=== PATIENT | female | born 1950 | race Caucasian/White ===

== ENCOUNTER 2016-06-20 16:25 | Inpatient (IN) ==
[2016-06-20] MEDS ORDERED: IPRATROPIUM/ALBUTEROL 3 ML AMPUL.NEB NEB ONE ×3 (16:53→23:03)
[2016-06-20] MEDS ORDERED: 0.9 % SODIUM CHLORIDE 1,000 ML IV ONE (16:53)
--- NOTE | 2016-06-20 16:54 | Emergency Department Note ---
General Adult HPI - General Chief complaint: Shortness of Breath/Dyspnea Stated complaint: Shortness of breath Time Seen by Provider: 06/20/16 16:50 Mode of arrival: wheelchair - History of Present Illness HPI Narrative: This patient has been sick for 3 days with cough and wheezing and exacerbation of her COPD. She is positive for influenza. The emergency room. Onset (ago): day(s) - Related Data Home Medications Medication Instructions Recorded Confirmed Albuterol Sulfate [Ventolin] 2 puff INH Q4-6HP PRN 05/23/15 06/20/16 Hydrocodone/APAP 7.5/325Mg [[place] 1 - 2 tab PO Q4HP PRN 05/23/15 06/20/16 7.5/325Mg] Ipratropium/Albuterol [Duoneb] 3 ml NEB Q6HP PRN 05/23/15 06/20/16 LORazepam [Ativan] 1 mg PO Q6HP PRN 05/23/15 06/20/16 Omeprazole [PriLOSEC] 20 mg PO QDAY 05/23/15 06/20/16 Salmeterol Xinafoate [Serevent 50 mcg IH BID 05/23/15 06/20/16 Diskus] Tiotropium [place] [Spiriva] 18 mcg INH DAILY 05/23/15 06/20/16 predniSONE [Prednisone] 20 mg PO Q48 06/20/16 06/20/16 Allergies Allergy/AdvReac Type Severity Reaction Status Date / Time No Known Drug Allergies Allergy Verified 05/23/15 23:43 Review of Systems Constitutional: Denies: fever, chills Eyes: Denies: eye pain ENT ED: Denies: ear pain Cardiovascular: Denies: chest pain Respiratory: Reports: cough, dyspnea, wheezes Gastrointestinal: Denies: abdominal pain, nausea Genitourinary: Denies: urgency Musculoskeletal: Denies: back pain Integumentary: Denies: rash Neurological: Denies: headache Psychiatric: Denies: anxiety Past Medical History - Past Medical History Medical history: Reports: COPD Physical Exam - General General appearance: alert - Head Head exam: atraumatic - Eye Eye exam: Present: normal appearance - ENT ENT exam: normal exam - Neck Neck exam: Present: normal inspection - Chest Chest inspection: Present: normal inspection - Respiratory Respiratory exam: Present: wheezes - Cardiovascular Cardiovascular exam: Present: regular rate, bradycardia, normal heart sounds - Abdominal Exam Abdominal exam: Present: soft. Absent: distention, tenderness - Neurological Exam Neurological exam: Present: alert - Psychiatric Psychiatric exam: Present: normal affect - Skin Skin exam: Present: warm Course Course Narrative: Despite repeated DuoNeb treatments and Solu-Medrol we could not get this patient comfortable and left to go home. She is admitted to the hospital by Dr. Weiss Vital Signs Temperature 98.6 F 06/20/16 16:26 Pulse Rate 103 H 06/20/16 16:26 Respiratory Rate 24 06/20/16 16:26 Blood Pressure 119/67 06/20/16 16:26 Pulse Oximetry (%) 88 L 06/20/16 16:26 Temperature 98.8 F 06/21/16 07:32 Pulse Rate 70 06/21/16 07:45 Respiratory Rate 20 06/21/16 07:45 Blood Pressure 110/70 06/21/16 07:32 Pulse Oximetry (%) 94 06/21/16 07:46 Medical Decision Making - Medical Records Medical records reviewed: Yes I reviewed the patient's medical records. - Lab Data Lab results reviewed: Yes I reviewed the patient's lab results. Result diagrams: 06/21/16 04:55 06/20/16 17:15 Lab Results 06/20/16 06/20/16 06/20/16 Range/Units 17:15 17:15 17:15 WBC 7.2 (4.5-11.0) K/mcL RBC 4.51 (4.00-5.20) M/mcL Hgb 13.1 (12.0-15.0) g/dL Hct 39.8 (36.0-48.0) % MCV 88.3 (80.0-100.0) fL MCH 29.0 (26.0-34.0) pg MCHC 32.8 (31.0-36.0) g/dL RDW 13.9 (11.5-14.5) % Plt Count 182 (140-440) K/mcL MPV 11.2 H (7.4-10.4) fL Gran % 82.2 H (38.0-78.0) % Lymph % (Auto) 7.3 L (15.5-49.0) % [place] % (Auto) 9.2 H (1.0-9.0) % Eos % (Auto) 1.1 (0.0-7.0) % Baso % (Auto) 0.2 (0.0-2.0) % Gran # 5.9 (1.8-8.0) K/mcL Lymph # 0.5 L (1.5-4.8) K/mcL [place] # 0.7 (0.1-0.9) K/mcL Eos # 0.1 (0.0-0.7) K/mcL Baso # 0 (0.0-0.3) K/mcL VBG Lactic Acid 1.1 (0.5-2.2) mmol/L Sodium 139 (133-145) mmol/L Potassium 3.9 (3.3-5.1) mmol/L Chloride 102 (96-108) mmol/L Carbon Dioxide 26 (22-30) mmol/L Anion Gap 11.0 (8-16) BUN 16 (8-23) mg/dl Creatinine 1.0 (0.6-1.1) mg/dl GFR Calculation 59 Glucose 104 (70-105) mg/dL Calcium 8.7 (8.6-10.4) mg/dl Total Bilirubin 0.2 (0.0-1.0) mg/dL AST 17 (0-37) U/l ALT 15 (0-40) U/l Alkaline Phosphatase 59 (39-117) U/L Total Protein 6.4 (5.9-8.4) gm/dL Albumin 3.8 (3.2-5.2) gm/dL Globulin 2.6 (2.2-3.7) gm/dL Albumin/Globulin Ratio 1.5 (1.0-2.3) - Radiology Data Radiology results reviewed: Yes I reviewed the patient's radiology results. ( chest x-ray was unremarkable) Disposition Clinical Impression: Influenza, Acute exacerbation of chronic obstructive airways disease Disposition: Xfer As Outpt/Obs ([facility]) Condition: Undetermined
[2016-06-20 17:59] LABS: Basophils # (Auto) 0 K/mcL (0.0-0.3); Basophils % (Auto) 0.2 % (0.0-2.0); Eosinophils # (Auto) 0.1 K/mcL (0.0-0.7); Eosinophils % (Auto) 1.1 % (0.0-7.0); Granulocytes % (Auto) 82.2 % (38.0-78.0); Lymphocytes # (Auto) 0.5 K/mcL (1.5-4.8); Lymphocytes % (Auto) 7.3 % (15.5-49.0); Mean Cell Volume 88.3 fL (80.0-100.0); Mean Corpuscular HGB Conc 32.8 g/dL (31.0-36.0); Monocytes # (Auto) 0.7 K/mcL (0.1-0.9); Monocytes % (Auto) 9.2 % (1.0-9.0); Platelet Count 182 K/mcL (140-440); RBC 4.51 M/mcL (4.00-5.20); Red Cell Distribution Width 13.9 % (11.5-14.5)
[2016-06-20 18:14] LABS: ALT/SGPT 15 U/l (0-40); Albumin 3.8 gm/dL (3.2-5.2); Albumin/Globulin Ratio 1.5 (1.0-2.3); Alkaline Phosphatase 59 U/L (39-117); Blood Urea Nitrogen 16 mg/dl (8-23)
[2016-06-20] MEDS ORDERED: ALBUTEROL SULFATE 5 MG/ML NEB SOLUTION BOTTLE NEB ONE (19:40)
[2016-06-20] MEDS ORDERED: methylPREDNISolone SOD SUCC 125 MG/2 ML VIAL IV ONE (19:49)
--- NOTE | 2016-06-20 20:36 | XRay Report ---
HISTORY: Reason for Exam:cough and influenza FINDINGS : There is are bands of discoid atelectasis in the lingula and right middle lobe. No alveolar infiltrate is present. There is no pleural effusion or adenopathy. The heart size is normal. IMPRESSION: Bands of discoid atelectasis in both lungs which are new since 05/23/15. Interpreted and Authenticated by: Fernando Latham 06/20/16
[2016-06-20] MEDS ORDERED: OSELTAMIVIR PHOSPHATE 75 MG CAPSULE PO ONE (20:52)
--- NOTE | 2016-06-20 21:18 | Internal Med History&Physical ---
Medical - H&P: HPI Patient information: Note initiated : 06/20/16 at 9:10 pm Service Date, if different from initiated Date: [] Patient: Brii Leung a 66 y/o F admitted on for Shortness of breath. Chief Complaint: [] Chief complaint: shortness of breath. History of present illness: Ms. Leung is a 66 year old female who presents to the ER with shortness of breath, not improving over the last 2 days The patient has been feeling sick since tuesday, with headache, malaise, cough, shortnes of breath, wheezing, She notes that she has been using her home medications and has had to use the nebulizer every 2 hrs with no improvement She has h/o copd and uses oxygen at home, at baseline she can walk 1-2 blocks, but now even going to the bathroom makes her short of breath. her cough is productive with yellowish sputum, no hemoptysis She denies any chest pains, palpitations, admits to some headaches, no abdominal pain, has some nausea, no vomiting, no bowel, blaldder issues In the ER she was wheezing, X ray chest is clear, labs ok, Flu was positive for influenza type A, the patient labs unremarkable SHe is on baseline oxygen requirement, but wheezing badly not responding to steroids, duonebs, in the ER ABG done shows ph 7.41/40/78 on 2L oxygen She was there for admitted to the hospital fo further management. patient notes that the likely source of her flu is the grand daugther. - Constitutional Constitutional: Present: fatigue, fever(s), headache(s), malaise, weakness - EENT Eyes: Absent: change in vision Nose, mouth and throat: Present: sinus pressure. Absent: disequilibrium, dizziness, odynophagia, throat swelling, tongue swelling - Cardiovascular Cardiovascular: Absent: chest pain, chest pain at rest, paroxysmal nocturnal dyspnea, pedal edema, radiating pain, syncope - Respiratory Respiratory: Present: cough, dyspnea, dyspnea on exertion, wheezing, excessive phlegm production, change in phlegm color, pain with cough. Absent: hemoptysis - Gastrointestinal Gastrointestinal: Present: nausea. Absent: abdominal pain, vomiting - Genitourinary Genitourinary: Absent: difficulty urinating, difficulty voiding, dyspareunia, dysuria - Musculoskeletal Musculoskeletal: Present: back pain. Absent: arthralgias, joint swelling - Integumentary Integumentary: Absent: new lesions, swelling, wounds, jaundice - Neurological Neurological: Absent: disequilibrium, dizziness, focal weakness, syncope, vertigo - Psychiatric Psychiatric: Present: anxiety, depression - Endocrine Endocrine: Absent: polydipsia, polyphagia, polyuria - Hematologic/Lymphatic Hematologic/Lymphatic: Absent: easy bleeding, easy bruising - Allergic/Immunologic Allergic/Immunologic: Absent: uticaria, wheezing Medical - H&P: PMH Medical history: PMH of copd, back pain, osteroarthrtitis, anxiety, depression. Surgical history: Tonsillectomy, tubal ligation. Family history: reviewed and not pertinent Social history: still smokes no etoh no recreational drugs. Medical - H&P: Meds Home Medications Medication Instructions Recorded Confirmed Type Albuterol Sulfate [Ventolin] 2 puff INH Q4-6HP PRN 05/23/15 05/23/15 History Hydrocodone/APAP 7.5/325Mg [[place] 1 - 2 tab PO Q4HP PRN 05/23/15 05/23/15 History 7.5/325Mg] Ipratropium/Albuterol [Duoneb] 3 ml NEB Q6HP PRN 05/23/15 05/23/15 History LORazepam [Ativan] 1 mg PO Q6HP PRN 05/23/15 05/23/15 History Omeprazole [PriLOSEC] 20 mg PO QDAY 05/23/15 05/23/15 History Salmeterol Xinafoate [Serevent 50 mcg IH BID 05/23/15 05/23/15 History Diskus] Tiotropium [place] [Spiriva] 18 mcg INH DAILY 05/23/15 05/23/15 History Allergies Allergy/AdvReac Type Severity Reaction Status Date / Time No Known Drug Allergies Allergy Verified 05/23/15 23:43 Medical - H&P: Exam - Constitutional Vitals: Temp Pulse Resp BP Pulse Ox 98.6 F 95 H 22 140/75 93 06/20/16 16:26 06/20/16 20:30 06/20/16 20:30 06/20/16 20:30 06/20/16 20:30 General appearance: cooperative, no acute distress - Head Head exam: Present: atraumatic, normal inspection, normocephalic - Eye Eye exam: Present: PERRL. Absent: periorbital swelling, periorbital tenderness , scleral icterus - ENT ENT exam: Present: mucous membranes moist, normal external ear exam, normal oropharynx, TM's normal bilaterally - Neck Neck exam: Present: normal inspection. Absent: tenderness - Expanded Neck Exam Neck exam: Absent: anterior neck swelling, tracheal deviation - Respiratory Respiratory exam: Present: decreased breath sounds, rhonchi, wheezes. Absent: accessory muscle use, chest wall tenderness, rales, respiratory distress - Cardiovascular Cardiovascular exam: Present: normal rate and rhythm, +S1, +S2, tachycardia - GI/Abdominal GI/Abdominal exam: Present: normal bowel sounds, soft. Absent: guarding, rigid - Extremities Exam Extremities exam: Present: Foot pink and warm, neurovascular intact. Absent: pedal edema - Back Exam Back exam: Absent: paraspinal tenderness, rash noted, tenderness, vertebral tenderness - Neurological Exam Neurological exam: Present: alert, CN II-XII intact, oriented X3. Absent: motor sensory deficit - Psychiatric Psychiatric exam: Absent: agitated, anxious - Skin Skin exam: Absent: rash, urticaria, warm Medical - H&P: Reslt - Labs CBC & Chem 7: 06/20/16 17:15 06/20/16 17:15 Labs: Short CBC 06/20/16 Range/Units 17:15 WBC 7.2 (4.5-11.0) K/mcL Hgb 13.1 (12.0-15.0) g/dL Hct 39.8 (36.0-48.0) % Plt Count 182 (140-440) K/mcL BMP 06/20/16 17:15 Sodium 139 Potassium 3.9 Chloride 102 Carbon Dioxide 26 BUN 16 Creatinine 1.0 Glucose 104 Calcium 8.7 Liver Function 06/20/16 Range/Units 17:15 Total Bilirubin 0.2 (0.0-1.0) mg/dL AST 17 (0-37) U/l ALT 15 (0-40) U/l Alkaline Phosphatase 59 (39-117) U/L Albumin 3.8 (3.2-5.2) gm/dL - ABG Interpretation -: ABG interpreted by me Interpretation: normal (chr hypoxia, ) Medical - H&P: A/P (1) Influenza A Current visit: Yes Status: Acute (2) Acute exacerbation of chronic obstructive airways disease Current visit: No Status: Acute (3) Chronic respiratory failure with hypoxia Current visit: Yes Status: Acute - Narrative A/P Narrative: patient presents to the ER with sob, wheezing, and flu, admitted for copd exacerbatino. Place under observation, she has no increased oxygen requirement, Treat flu with tamiflu bid STart on IV steroids, Zithromax, duonebs q 4 hrs, incentive spirometery. Patient is able to speak full sentences, has no accessory muscle use and normal abg, at thsi time no indication for bipap treatment X ray appears clear, official report pending, Patient has chr OA issues and Anxiety She seems to take 1mg of ativan every 6 hrs, I have cut down her dose of ativn to 0.5mg to avoid resp depression. will increase the dose if needed. Diet regular code full Dvt lovenox sq. Plan of care discused with the patient who is in agreement with same.
[2016-06-20] MEDS ORDERED: AZITHROMYCIN 250 MG TABLET PO ONE (22:10)
[2016-06-20] MEDS ORDERED: BISACODYL 10 MG SUPP.RECT PR PRN (22:10)
[2016-06-20] MEDS ORDERED: NALOXONE HCL 0.4 MG/ML VIAL IV PRN (22:10)
[2016-06-20] MEDS ORDERED: ACETAMINOPHEN 325 MG TABLET PO PRN (22:10)
[2016-06-20] MEDS ORDERED: ONDANSETRON 4 MG/2 ML VIAL IV PRN (22:10)
[2016-06-20] MEDS ORDERED: MAGNESIUM HYDROXIDE 30 ML ORAL.SUSP PO PRN (22:10)
[2016-06-20] MEDS ORDERED: FLEETS ADULT ENEMA PR PRN (22:10)
[2016-06-20] MEDS ORDERED: SENNOSIDES 1 TABLET PO PRN (22:10)
[2016-06-20] MEDS: OSELTAMIVIR PHOSPHATE 75 MG CAPSULE PO SCH (22:46)
[2016-06-20] MEDS: HYDROCODONE/APAP 7.5/325MG TABLET PO PRN (22:58)
[2016-06-20] MEDS: 0.9 % SODIUM CHLORIDE 10 ML SYRINGE IV SCH (23:00)
[2016-06-20] MEDS: IPRATROPIUM/ALBUTEROL 3 ML AMPUL.NEB NEB SCH (23:00)
[2016-06-20] MEDS ORDERED: HYDROCODONE/APAP 7.5/325MG TABLET PO ONE (23:02)
[2016-06-20] MEDS: ENOXAPARIN 40 MG/0.4 ML SYRINGE SQ SCH (23:14)
[2016-06-21] MEDS ORDERED: methylPREDNISolone SOD SUCC 125 MG/2 ML VIAL ONE (00:43)
[2016-06-21] MEDS: methylPREDNISolone SOD SUCC 40 MG/ML VIAL IV SCH ×5 (00:43→23:35)
[2016-06-21] MEDS: IPRATROPIUM/ALBUTEROL 3 ML AMPUL.NEB NEB SCH ×6 (03:05→22:33)
[2016-06-21] MEDS ORDERED: IPRATROPIUM/ALBUTEROL 3 ML AMPUL.NEB NEB ONE (03:12)
[2016-06-21] MEDS: LORazepam 0.5 MG TABLET PO PRN ×3 (03:28→17:36)
[2016-06-21] MEDS ORDERED: HYDROCODONE/APAP 7.5/325MG TABLET PO ONE (03:32)
[2016-06-21] MEDS ORDERED: LORazepam 0.5 MG TABLET ONE (03:33)
[2016-06-21] MEDS: PANTOPRAZOLE 40 MG TABLET PO SCH (07:34)
[2016-06-21] MEDS: 0.9 % SODIUM CHLORIDE 10 ML SYRINGE IV SCH ×3 (07:35→23:36)
[2016-06-21 08:07] LABS: Mean Cell Volume 88.8 fL (80.0-100.0); Mean Corpuscular HGB Conc 32.9 g/dL (31.0-36.0); Mean Corpuscular Hemoglobin 29.2 pg (26.0-34.0); Platelet Count 169 K/mcL (140-440); RBC 4.18 M/mcL (4.00-5.20); Red Cell Distribution Width 13.8 % (11.5-14.5)
[2016-06-21 08:22] LABS: ALT/SGPT 14 U/l (0-40); Albumin 3.8 gm/dL (3.2-5.2); Alkaline Phosphatase 55 U/L (39-117); Bilirubin,Direct < 0.2 mg/dL (0.0-0.3); Blood Urea Nitrogen 13 mg/dl (8-23); Gamma Glutamyl Transpeptidase 55 U/L (5-36); Magnesium 2.1 mg/dL (1.6-2.5); Phosphorous 4.5 mg/dL (2.7-4.5); Uric Acid 3.4 mg/dL (2.5-8.0)
[2016-06-21 09:06] LABS: Band Neutrophils % 5 % (0-10); Lymphocytes % 3 % (15-49); Monocytes % (Manual) 2 % (1-9); Platelet Estimate NORMAL (NORMAL); RBC Morphology NORMAL (NORMAL); Segmented Neutrophils % 90 % (38-78)
[2016-06-21] MEDS: ENOXAPARIN 40 MG/0.4 ML SYRINGE SQ SCH (09:07)
[2016-06-21] MEDS: OSELTAMIVIR PHOSPHATE 75 MG CAPSULE PO SCH ×2 (09:08→21:16)
[2016-06-21] MEDS: guaiFENesin 600 MG TAB.SR.12H PO SCH ×2 (09:08→21:16)
[2016-06-21] MEDS: AZITHROMYCIN 250 MG TABLET PO SCH (13:22)
[2016-06-21] MEDS: HYDROCODONE/APAP 7.5/325MG TABLET PO PRN ×2 (13:22→17:37)
--- NOTE | 2016-06-21 14:07 | Internal Med Progress Note ---
Medical - PN: Subj Patient information: Note initiated : 06/21/16 at 2:04 pm Service Date, if different from initiated Date: [] Patient: Brii Leung 66 y/o F admitted on 06/20/16 for SOB/Influenza, COPD Exacerbation. Chief Complaint: [] Interval history: Pt seen examined no acute concerns no acute overnight events no new complaints. slept ok but sill wheezing, and sob on minimal activity Coughing intermittently. Pertinent ROS: sob present, cough present, weakness and malaise present no chest pains, palpiations no abdominal pain, nausea or vomiting. - Constitutional Vitals: Vital Signs Temp Pulse Resp BP Pulse Ox 98.2 F 89 22 132/78 98 06/21/16 12:00 06/21/16 12:00 06/21/16 12:00 06/21/16 12:00 06/21/16 12:00 Period Temp Pulse Resp BP Sys/Queen Pulse Ox Last 24 Hr 97.3 F-98.8 F 70-92 16-26 110-148/70-78 92-98 Intake and Output 06/21/16 06/21/16 06/21/16 05:59 13:59 21:59 Intake Total 240 / 240 Balance 240 / 240 Weight 188 lb Intake & Output: Intake & Output 06/21/16 06/21/16 06/21/16 05:59 13:59 21:59 Intake Total 240 / 240 Balance 240 / 240 Weight 188 lb Intake: Oral 240 / 240 Other: Meal Nourishment/Supplement Percent of Meal Consumed 100% Feeding Ability Independent # Voids 2 - Head Head exam: Present: atraumatic, normal inspection, normocephalic - Eye Eye exam: Present: PERRL. Absent: periorbital swelling, periorbital tenderness , scleral icterus - ENT ENT exam: Present: mucous membranes moist - Respiratory Respiratory exam: Present: prolonged expiratory phase, wheezes. Absent: accessory muscle use, chest wall tenderness - Cardiovascular Cardiovascular exam: Present: normal rate and rhythm, +S1, +S2 - GI/Abdominal GI/Abdominal exam: Present: normal bowel sounds, soft - Neurological Exam Neurological exam: Present: alert, CN II-XII intact, oriented X3. Absent: motor sensory deficit Medical - PN: Obj Da - Labs CBC & Chem 7: 06/21/16 04:55 06/21/16 04:55 Labs: Abnormal Lab Results 06/21/16 06/21/16 04:55 04:55 WBC 4.4 L MPV 11.3 H Seg Neutrophils % 90 H Lymphocytes % 3 L Glucose 150 H Calcium 8.3 L GGT 55 H Total Protein 5.7 L Globulin 1.9 L Meds: Medications Acetaminophen (Tylenol) 650 mg PO Q6HP PRN PRN Reason: PAIN/FEVER > 101 Acetaminophen/Hydrocodone Bitart ([place] 7.5/325mg) 1 tab PO Q4-6HP PRN PRN Reason: Pain Last Admin: 06/21/16 13:22 Dose: 1 tab Albuterol/Ipratropium (Duoneb) 3 ml NEB Q4HRT [facility] Last Admin: 06/21/16 11:15 Dose: 3 ml Azithromycin (Zithromax) 250 mg PO DAILY [facility] Stop: 06/24/16 09:01 Last Admin: 06/21/16 13:22 Dose: 250 mg Bisacodyl (Dulcolax) 10 mg SC Q2-3DAYS PRN PRN Reason: Constipation Enoxaparin Sodium (Lovenox) 40 mg SQ DAILY [facility] Last Admin: 06/21/16 09:07 Dose: 40 mg Guaifenesin (Mucinex) 600 mg PO BID [facility] Last Admin: 06/21/16 09:08 Dose: 600 mg Lorazepam (Ativan) 0.5 mg PO Q4HP PRN PRN Reason: ANXIETY/SEDATION Last Admin: 06/21/16 13:22 Dose: 0.5 mg Magnesium Hydroxide (Milk Of Magnesia) 30 ml PO DAILYP PRN PRN Reason: Constipation Methylprednisolone Sodium Succinate (Solu-Medrol) 40 mg IV Q6 [facility] Last Admin: 06/21/16 11:56 Dose: 40 mg Naloxone HCl (Narcan) 0.1 mg IV Q2MIN PRN PRN Reason: Opiate Reversal Ondansetron HCl (Zofran) 4 mg IV Q6HP PRN PRN Reason: Nausea And Vomiting Oseltamivir Phosphate (Tamiflu) 75 mg PO BID [facility] Last Admin: 06/21/16 09:08 Dose: 75 mg Pantoprazole Sodium (Protonix) 40 mg PO QAMAC [facility] Last Admin: 06/21/16 07:34 Dose: 40 mg Promethazine HCl (Phenergan) 12.5 mg IV Q6HP PRN PRN Reason: Nausea And Vomiting Senna (Senokot) 2 tab PO HS PRN PRN Reason: Constipation Sodium Biphosphate/Sodium Phosphate (Fleets Adult) 1 dose SC Q3-4DAYS PRN PRN Reason: Constipation Sodium Chloride (Saline Flush) 10 ml IV Q8 [facility] Last Admin: 06/21/16 13:23 Dose: 10 ml Medical - PN: A/P - Time Spent With Patient Total time spent is greater than 50% in coordination of care (as documented) at patient's floor/unit and/or counseling patient: (1) Influenza A Status: Acute Assessment and plan: on tamiflu. Current Visit: Yes (2) Acute exacerbation of chronic obstructive airways disease Status: Acute Assessment and plan: at baseline oxygen requirement wheezing bilaterally poor air entry continue steroids duonebs and antibiotics. Current Visit: Yes (3) Chronic respiratory failure with hypoxia Status: Acute Assessment and plan: at baseline oxygen requirements. Current Visit: Yes Medical - PN: Qual - Stroke Symptom Onset Unknown: No - VTE Deep Vein Thrombosis/Pulmonary Embolism Present on Admission: No
[2016-06-21] MEDS: PROMETHAZINE 25 MG/ML VIAL IV PRN (14:55)
[2016-06-22] MEDS: IPRATROPIUM/ALBUTEROL 3 ML AMPUL.NEB NEB SCH ×6 (03:51→22:34)
[2016-06-22] MEDS: PANTOPRAZOLE 40 MG TABLET PO SCH (07:13)
[2016-06-22] MEDS: methylPREDNISolone SOD SUCC 40 MG/ML VIAL IV SCH ×5 (07:13→23:51)
[2016-06-22] MEDS: 0.9 % SODIUM CHLORIDE 10 ML SYRINGE IV SCH ×3 (07:14→21:27)
[2016-06-22] MEDS: ENOXAPARIN 40 MG/0.4 ML SYRINGE SQ SCH (10:42)
[2016-06-22] MEDS: OSELTAMIVIR PHOSPHATE 75 MG CAPSULE PO SCH ×2 (10:42→21:15)
[2016-06-22] MEDS: AZITHROMYCIN 250 MG TABLET PO SCH (10:43)
[2016-06-22] MEDS: guaiFENesin 600 MG TAB.SR.12H PO SCH ×2 (10:44→21:15)
[2016-06-22] MEDS: PROMETHAZINE 25 MG/ML VIAL IV PRN ×2 (11:10→21:27)
--- NOTE | 2016-06-22 13:48 | Internal Med Progress Note ---
Medical - PN: Subj Patient information: Note initiated : 06/22/16 at 1:46 pm Service Date, if different from initiated Date: [] Patient: Brii Leung 66 y/o F admitted on 06/20/16 for SOB/Influenza, COPD Exacerbation. Chief Complaint: [] Interval history: The patient seen exained this AM no acute complaints still is very sob on minimal activity, going to the bathroom, which is 10 feet away makes her tired and sob, still coughing and wheezing. Does not feel safe to go home. Pertinent ROS: Denies headache, dizziness Denies chest pain, palpitations cough or shortness of breath present. Denies abdominal pain, nausea or vomiting. - Constitutional Vitals: Vital Signs Temp Pulse Resp BP Pulse Ox 97.6 F 77 18 132/67 99 06/22/16 11:45 06/22/16 11:45 06/22/16 11:45 06/22/16 11:45 06/22/16 11:45 Period Temp Pulse Resp BP Sys/Queen Pulse Ox Last 24 Hr 97.6 F-98.4 F 71-88 16-24 100-135/62-82 93-99 Intake and Output 06/21/16 06/22/16 06/22/16 21:59 05:59 13:59 Intake Total 225 / 225 150 / 150 Output Total 450 / 450 Balance -225 / -225 150 / 150 Weight 188 lb 8 oz Intake & Output: Intake & Output 06/21/16 06/22/16 06/22/16 21:59 05:59 13:59 Intake Total 225 / 225 150 / 150 Output Total 450 / 450 Balance -225 / -225 150 / 150 Weight 188 lb 8 oz Intake: Oral 225 / 225 150 / 150 Output: Void Amount 450 / 450 - Head Head exam: Present: atraumatic, normal inspection - Eye Eye exam: Present: PERRL. Absent: periorbital swelling, periorbital tenderness , scleral icterus - ENT ENT exam: Present: mucous membranes moist - Neck Neck exam: Present: normal inspection - Respiratory Respiratory exam: Present: decreased breath sounds, prolonged expiratory phase, rhonchi, wheezes. Absent: accessory muscle use - Cardiovascular Cardiovascular exam: Present: normal rate and rhythm, +S1, +S2 - GI/Abdominal GI/Abdominal exam: Present: normal bowel sounds, soft. Absent: rigid, tenderness - Neurological Exam Neurological exam: Present: alert, CN II-XII intact, oriented X3. Absent: motor sensory deficit Medical - PN: Obj Da - Labs CBC & Chem 7: 06/21/16 04:55 06/21/16 04:55 Labs: Abnormal Lab Results 06/21/16 06/21/16 04:55 04:55 WBC 4.4 L MPV 11.3 H Seg Neutrophils % 90 H Lymphocytes % 3 L Glucose 150 H Calcium 8.3 L GGT 55 H Total Protein 5.7 L Globulin 1.9 L Meds: Medications Acetaminophen (Tylenol) 650 mg PO Q6HP PRN PRN Reason: PAIN/FEVER > 101 Acetaminophen/Hydrocodone Bitart ([place] 7.5/325mg) 1 tab PO Q4-6HP PRN PRN Reason: Pain Last Admin: 06/21/16 17:37 Dose: 1 tab Albuterol/Ipratropium (Duoneb) 3 ml NEB Q4HRT [facility] Last Admin: 06/22/16 11:23 Dose: 3 ml Azithromycin (Zithromax) 250 mg PO DAILY [facility] Stop: 06/24/16 09:01 Last Admin: 06/22/16 10:43 Dose: 250 mg Bisacodyl (Dulcolax) 10 mg [place] Q2-3DAYS PRN PRN Reason: Constipation Enoxaparin Sodium (Lovenox) 40 mg SQ DAILY [facility] Last Admin: 06/22/16 10:42 Dose: 40 mg Guaifenesin (Mucinex) 600 mg PO BID [facility] Last Admin: 06/22/16 10:44 Dose: 600 mg Lorazepam (Ativan) 0.5 mg PO Q4HP PRN PRN Reason: ANXIETY/SEDATION Last Admin: 06/21/16 17:36 Dose: 0.5 mg Magnesium Hydroxide (Milk Of Magnesia) 30 ml PO DAILYP PRN PRN Reason: Constipation Methylprednisolone Sodium Succinate (Solu-Medrol) 40 mg IV Q6 [facility] Last Admin: 06/22/16 11:21 Dose: 40 mg Naloxone HCl (Narcan) 0.1 mg IV Q2MIN PRN PRN Reason: Opiate Reversal Ondansetron HCl (Zofran) 4 mg IV Q6HP PRN PRN Reason: Nausea And Vomiting Oseltamivir Phosphate (Tamiflu) 75 mg PO BID [facility] Last Admin: 06/22/16 10:42 Dose: 75 mg Pantoprazole Sodium (Protonix) 40 mg PO QAMAC [facility] Last Admin: 06/22/16 07:13 Dose: 40 mg Promethazine HCl (Phenergan) 12.5 mg IV Q6HP PRN PRN Reason: Nausea And Vomiting Last Admin: 06/22/16 11:10 Dose: 12.5 mg Senna (Senokot) 2 tab PO HS PRN PRN Reason: Constipation Sodium Biphosphate/Sodium Phosphate (Fleets Adult) 1 dose [place] Q3-4DAYS PRN PRN Reason: Constipation Sodium Chloride (Saline Flush) 10 ml IV Q8 [facility] Last Admin: 06/22/16 07:14 Dose: 10 ml Medical - PN: A/P - Time Spent With Patient Total time spent is greater than 50% in coordination of care (as documented) at patient's floor/unit and/or counseling patient: (1) Influenza A Status: Acute Assessment and plan: on tamiflu. Current Visit: Yes (2) Acute exacerbation of chronic obstructive airways disease Status: Acute Assessment and plan: at baseline oxygen requirement wheezing bilaterally poor air entry continue steroids duonebs and antibiotics. patient is sob on minimal activity, not safe to go home, will continue IV steroids, duonebs q 4 hrs and abx, monitor Current Visit: Yes (3) Chronic respiratory failure with hypoxia Status: Acute Assessment and plan: at baseline oxygen requirements. Current Visit: Yes Medical - PN: Qual - Stroke Symptom Onset Unknown: No - VTE Deep Vein Thrombosis/Pulmonary Embolism Present on Admission: No
[2016-06-22] MEDS: LORazepam 0.5 MG TABLET PO PRN (17:58)
[2016-06-22] MEDS: HYDROCODONE/APAP 7.5/325MG TABLET PO PRN (17:58)
[2016-06-22] MEDS ORDERED: POTASSIUM CHLORIDE 20 MEQ PACKET PO ONE (18:19)
[2016-06-23] MEDS: IPRATROPIUM/ALBUTEROL 3 ML AMPUL.NEB NEB SCH ×6 (03:47→23:04)
[2016-06-23] MEDS: methylPREDNISolone SOD SUCC 40 MG/ML VIAL IV SCH ×3 (05:56→18:00)
[2016-06-23] MEDS: 0.9 % SODIUM CHLORIDE 10 ML SYRINGE IV SCH ×3 (05:56→22:39)
[2016-06-23 06:26] LABS: Basophils # (Auto) 0 K/mcL (0.0-0.3); Basophils % (Auto) 0.1 % (0.0-2.0); Eosinophils # (Auto) 0 K/mcL (0.0-0.7); Eosinophils % (Auto) 0.2 % (0.0-7.0); Granulocytes % (Auto) 86.2 % (38.0-78.0); Lymphocytes # (Auto) 0.5 K/mcL (1.5-4.8); Lymphocytes % (Auto) 7.3 % (15.5-49.0); Mean Cell Volume 89.9 fL (80.0-100.0); Mean Corpuscular HGB Conc 32.3 g/dL (31.0-36.0); Monocytes # (Auto) 0.5 K/mcL (0.1-0.9); Monocytes % (Auto) 6.2 % (1.0-9.0); Platelet Count 176 K/mcL (140-440); RBC 4.13 M/mcL (4.00-5.20); Red Cell Distribution Width 13.9 % (11.5-14.5)
[2016-06-23 07:00] LABS: ALT/SGPT 13 U/l (0-40); Albumin 3.5 gm/dL (3.2-5.2); Albumin/Globulin Ratio 1.5 (1.0-2.3); Alkaline Phosphatase 46 U/L (39-117); Bilirubin,Direct < 0.2 mg/dL (0.0-0.3); Blood Urea Nitrogen 24 mg/dl (8-23); Gamma Glutamyl Transpeptidase 59 U/L (5-36); Magnesium 2.3 mg/dL (1.6-2.5); Phosphorous 3.7 mg/dL (2.7-4.5); Uric Acid 2.7 mg/dL (2.5-8.0)
[2016-06-23] MEDS: PANTOPRAZOLE 40 MG TABLET PO SCH (07:09)
[2016-06-23] MEDS: ENOXAPARIN 40 MG/0.4 ML SYRINGE SQ SCH (09:50)
[2016-06-23] MEDS: AZITHROMYCIN 250 MG TABLET PO SCH (09:50)
[2016-06-23] MEDS: OSELTAMIVIR PHOSPHATE 75 MG CAPSULE PO SCH ×2 (09:50→20:07)
[2016-06-23] MEDS: guaiFENesin 600 MG TAB.SR.12H PO SCH ×2 (09:50→20:07)
[2016-06-23] MEDS: LORazepam 0.5 MG TABLET PO PRN ×2 (09:50→22:39)
[2016-06-23] MEDS: HYDROCODONE/APAP 7.5/325MG TABLET PO PRN ×2 (09:51→14:58)
--- NOTE | 2016-06-23 11:32 | Internal Med Progress Note ---
Medical - PN: Subj Patient information: Note initiated : 06/23/16 at 11:30 am Service Date, if different from initiated Date: [] Patient: Brii Leung 66 y/o F admitted on 06/22/16 for SOB/Influenza, COPD Exacerbation. Chief Complaint: [] Interval history: The patient seen examined this AM, no acute changes, she is feeling a bit better, was able to walk to the bathroom, but still has sob , and cough, limiting her ambulation. Pertinent ROS: Denies headache, dizziness Denies chest pain, palpitations present cough or shortness of breath Denies abdominal pain, nausea or vomiting. - Constitutional Vitals: Vital Signs Temp Pulse Resp BP Pulse Ox 97.5 F L 62 20 125/69 96 06/23/16 07:20 06/23/16 07:41 06/23/16 07:41 06/23/16 07:20 06/23/16 07:42 Period Temp Pulse Resp BP Sys/Queen Pulse Ox Last 24 Hr 97.5 F-98.1 F 62-88 16-26 99-132/59-78 90-98 Intake and Output 06/22/16 06/23/16 06/23/16 21:59 05:59 13:59 Intake Total 480 / 480 250 / 250 Output Total 750 / 750 Balance -270 / -270 250 / 250 Weight 189 lb Intake & Output: Intake & Output 06/22/16 06/23/16 06/23/16 21:59 05:59 13:59 Intake Total 480 / 480 250 / 250 Output Total 750 / 750 Balance -270 / -270 250 / 250 Weight 189 lb Intake: Oral 480 / 480 250 / 250 Output: Void Amount 750 / 750 Other: Meal Lunch Percent of Meal Consumed 100% General appearance: average body habitus, no acute distress - Head Head exam: Present: atraumatic, normal inspection - ENT ENT exam: Present: mucous membranes moist - Neck Neck exam: Present: normal inspection - Respiratory Respiratory exam: Present: prolonged expiratory phase, wheezes. Absent: accessory muscle use Additional comments: able to speak full sentences. - Cardiovascular Cardiovascular exam: Present: normal rate and rhythm, +S1, +S2 - GI/Abdominal GI/Abdominal exam: Present: normal bowel sounds, soft - Neurological Exam Neurological exam: Present: alert, CN II-XII intact, oriented X3. Absent: motor sensory deficit Medical - PN: Obj Da - Labs CBC & Chem 7: 06/23/16 04:25 06/23/16 04:25 Labs: Abnormal Lab Results 06/23/16 06/23/16 04:25 04:25 MPV 11.3 H Gran % 86.2 H Lymph % (Auto) 7.3 L Lymph # 0.5 L BUN 24 H Glucose 130 H GGT 59 H Total Protein 5.8 L Meds: Medications Acetaminophen (Tylenol) 650 mg PO Q6HP PRN PRN Reason: PAIN/FEVER > 101 Acetaminophen/Hydrocodone Bitart ([place] 7.5/325mg) 1 tab PO Q4-6HP PRN PRN Reason: Pain Last Admin: 06/23/16 09:51 Dose: 1 tab Albuterol/Ipratropium (Duoneb) 3 ml NEB Q4HRT [facility] Last Admin: 06/23/16 11:19 Dose: 3 ml Azithromycin (Zithromax) 250 mg PO DAILY [facility] Stop: 06/24/16 09:01 Last Admin: 06/23/16 08:58 Dose: 250 mg Bisacodyl (Dulcolax) 10 mg [place] Q2-3DAYS PRN PRN Reason: Constipation Enoxaparin Sodium (Lovenox) 40 mg SQ DAILY [facility] Last Admin: 06/23/16 08:58 Dose: 40 mg Guaifenesin (Mucinex) 600 mg PO BID [facility] Last Admin: 06/23/16 08:58 Dose: 600 mg Lorazepam (Ativan) 0.5 mg PO Q4HP PRN PRN Reason: ANXIETY/SEDATION Last Admin: 06/23/16 09:50 Dose: 0.5 mg Magnesium Hydroxide (Milk Of Magnesia) 30 ml PO DAILYP PRN PRN Reason: Constipation Methylprednisolone Sodium Succinate (Solu-Medrol) 40 mg IV Q6 [facility] Last Admin: 06/23/16 05:56 Dose: 40 mg Naloxone HCl (Narcan) 0.1 mg IV Q2MIN PRN PRN Reason: Opiate Reversal Ondansetron HCl (Zofran) 4 mg IV Q6HP PRN PRN Reason: Nausea And Vomiting Oseltamivir Phosphate (Tamiflu) 75 mg PO BID [facility] Last Admin: 06/23/16 08:58 Dose: 75 mg Pantoprazole Sodium (Protonix) 40 mg PO QAMAC [facility] Last Admin: 06/23/16 07:09 Dose: 40 mg Promethazine HCl (Phenergan) 12.5 mg IV Q6HP PRN PRN Reason: Nausea And Vomiting Last Admin: 06/22/16 21:27 Dose: 12.5 mg Senna (Senokot) 2 tab PO HS PRN PRN Reason: Constipation Sodium Biphosphate/Sodium Phosphate (Fleets Adult) 1 dose [place] Q3-4DAYS PRN PRN Reason: Constipation Sodium Chloride (Saline Flush) 10 ml IV Q8 [facility] Last Admin: 06/23/16 05:56 Dose: 10 ml Medical - PN: A/P - Time Spent With Patient Total time spent is greater than 50% in coordination of care (as documented) at patient's floor/unit and/or counseling patient: (1) Influenza A Status: Acute Assessment and plan: on tamiflu.continue same Current Visit: Yes (2) Acute exacerbation of chronic obstructive airways disease Status: Acute Assessment and plan: at baseline oxygen requirement wheezing bilaterally poor air entry, but improved since yesterday continue steroids duonebs and antibiotics. patient is still sob on minimal activity, not safe to go home yet. will change from obs to inpatient status. will continue IV steroids, duonebs q 4 hrs and abx, monitor hopefully will be able to be d/c tomorrow in AM. Current Visit: Yes (3) Chronic respiratory failure with hypoxia Status: Acute Assessment and plan: at baseline oxygen requirements. Current Visit: Yes Medical - PN: Qual - Stroke Symptom Onset Unknown: No - VTE Deep Vein Thrombosis/Pulmonary Embolism Present on Admission: No
[2016-06-24] MEDS: methylPREDNISolone SOD SUCC 40 MG/ML VIAL IV SCH ×4 (00:01→17:39)
[2016-06-24] MEDS: IPRATROPIUM/ALBUTEROL 3 ML AMPUL.NEB NEB SCH ×5 (03:21→20:38)
[2016-06-24] MEDS: PANTOPRAZOLE 40 MG TABLET PO SCH (08:01)
[2016-06-24] MEDS: 0.9 % SODIUM CHLORIDE 10 ML SYRINGE IV SCH ×3 (08:04→22:16)
--- NOTE | 2016-06-24 10:06 | Internal Med Progress Note ---
Medical - PN: Subj Patient information: Note initiated : 06/24/16 at 10:04 am Service Date, if different from initiated Date: [] Patient: Brii Leung 66 y/o F admitted on 06/22/16 for SOB/Influenza, COPD Exacerbation. Chief Complaint: [] Interval history: patient seen examined eating breakfast this AM, did not compliain much but notes cough with sputum is present, and she is clearing her secretions from gordon lungs better, sputum with yellowish color, no blood She was able to go to the shower this AM, but that activity made her short of breath Pertinent ROS: Denies headache, dizziness Denies chest pain, palpitations cough with yellowish expectoration, shortness of breath and wheezing present. Denies abdominal pain, nausea or vomiting. - Constitutional Vitals: Vital Signs Temp Pulse Resp BP Pulse Ox 97.9 F 66 16 134/82 91 06/24/16 03:37 06/24/16 07:37 06/24/16 07:37 06/24/16 06:30 06/24/16 07:38 Period Temp Pulse Resp BP Sys/Queen Pulse Ox Last 24 Hr 97.1 F-98.2 F 62-81 12-24 120-146/74-83 91-95 Intake and Output 06/23/16 06/24/16 06/24/16 21:59 05:59 13:59 Intake Total 440 / 440 400 / 400 Balance 440 / 440 400 / 400 Weight 187 lb 8 oz Intake & Output: Intake & Output 06/23/16 06/24/16 06/24/16 21:59 05:59 13:59 Intake Total 440 / 440 400 / 400 Balance 440 / 440 400 / 400 Weight 187 lb 8 oz Intake: Oral 440 / 440 400 / 400 Other: Meal Lunch Percent of Meal Consumed 100% # Voids 4 1 Exam: Constitutional; Afebrile, cooperative, alert, not in distress. Eyes- No icterus, Pupils equal, reactive, No periorbital swelling Ears- Ext ear normal, hearing normal to conversation. Neck- Midline trachea, supple Respiratory system: Air Entry equal on both sides, bilateral wheezing and prolonsed exp, phase, improved from yesterday, CVS- Rate rhythm regular, S1,S2 heard, no gallop, no rub. 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 Medical - PN: Obj Da - Labs CBC & Chem 7: 06/23/16 04:25 06/23/16 04:25 Labs: Abnormal Lab Results 06/23/16 06/23/16 04:25 04:25 MPV 11.3 H Gran % 86.2 H Lymph % (Auto) 7.3 L Lymph # 0.5 L BUN 24 H Glucose 130 H GGT 59 H Total Protein 5.8 L Meds: Medications Acetaminophen (Tylenol) 650 mg PO Q6HP PRN PRN Reason: PAIN/FEVER > 101 Acetaminophen/Hydrocodone Bitart ([place] 7.5/325mg) 1 tab PO Q4-6HP PRN PRN Reason: Pain Last Admin: 06/23/16 14:58 Dose: 1 tab Albuterol/Ipratropium (Duoneb) 3 ml NEB Q4HRT [facility] Last Admin: 06/24/16 07:00 Dose: 3 ml Bisacodyl (Dulcolax) 10 mg [place] Q2-3DAYS PRN PRN Reason: Constipation Enoxaparin Sodium (Lovenox) 40 mg SQ DAILY [facility] Last Admin: 06/23/16 09:50 Dose: 40 mg Guaifenesin (Mucinex) 600 mg PO BID [facility] Last Admin: 06/23/16 20:07 Dose: 600 mg Lorazepam (Ativan) 0.5 mg PO Q4HP PRN PRN Reason: ANXIETY/SEDATION Last Admin: 06/23/16 22:39 Dose: 0.5 mg Magnesium Hydroxide (Milk Of Magnesia) 30 ml PO DAILYP PRN PRN Reason: Constipation Last Admin: 06/23/16 14:58 Dose: 30 ml Methylprednisolone Sodium Succinate (Solu-Medrol) 40 mg IV Q6 [facility] Last Admin: 06/24/16 06:47 Dose: 40 mg Naloxone HCl (Narcan) 0.1 mg IV Q2MIN PRN PRN Reason: Opiate Reversal Ondansetron HCl (Zofran) 4 mg IV Q6HP PRN PRN Reason: Nausea And Vomiting Oseltamivir Phosphate (Tamiflu) 75 mg PO BID [facility] Last Admin: 06/23/16 20:07 Dose: 75 mg Pantoprazole Sodium (Protonix) 40 mg PO QAMAC [facility] Last Admin: 06/24/16 08:01 Dose: 40 mg Promethazine HCl (Phenergan) 12.5 mg IV Q6HP PRN PRN Reason: Nausea And Vomiting Last Admin: 06/22/16 21:27 Dose: 12.5 mg Senna (Senokot) 2 tab PO HS PRN PRN Reason: Constipation Sodium Biphosphate/Sodium Phosphate (Fleets Adult) 1 dose [place] Q3-4DAYS PRN PRN Reason: Constipation Sodium Chloride (Saline Flush) 10 ml IV Q8 [facility] Last Admin: 06/24/16 08:04 Dose: 10 ml Medical - PN: A/P - Time Spent With Patient Total time spent is greater than 50% in coordination of care (as documented) at patient's floor/unit and/or counseling patient: (1) Influenza A Status: Acute Assessment and plan: on tamiflu.continue same for now. Current Visit: Yes (2) Acute exacerbation of chronic obstructive airways disease Status: Acute Assessment and plan: at baseline oxygen requirement wheezing bilaterally and poor air entry she is better t alvarez yesterday advised to walk the hallways today to see if she is able to do that. will monitor continue iv steroids, duonebs q 4 hrs Hopefully will be improved enough to go home tomorrow. . Current Visit: Yes (3) Chronic respiratory failure with hypoxia Status: Acute Assessment and plan: at baseline oxygen requirements. Current Visit: Yes Medical - PN: Qual - Stroke Symptom Onset Unknown: No - VTE Deep Vein Thrombosis/Pulmonary Embolism Present on Admission: No
[2016-06-24] MEDS: HYDROCODONE/APAP 7.5/325MG TABLET PO PRN ×2 (10:30→19:39)
[2016-06-24] MEDS: AZITHROMYCIN 250 MG TABLET PO SCH (10:35)
[2016-06-24] MEDS: ENOXAPARIN 40 MG/0.4 ML SYRINGE SQ SCH (10:36)
[2016-06-24] MEDS: guaiFENesin 600 MG TAB.SR.12H PO SCH ×2 (10:36→20:29)
[2016-06-24] MEDS: OSELTAMIVIR PHOSPHATE 75 MG CAPSULE PO SCH ×2 (10:36→20:29)
[2016-06-24] MEDS: PROMETHAZINE 25 MG/ML VIAL IV PRN (19:30)
[2016-06-24] MEDS: LORazepam 0.5 MG TABLET PO PRN (19:30)
[2016-06-25] MEDS: methylPREDNISolone SOD SUCC 40 MG/ML VIAL IV SCH ×4 (00:02→17:14)
[2016-06-25] MEDS: IPRATROPIUM/ALBUTEROL 3 ML AMPUL.NEB NEB SCH ×7 (00:02→22:50)
[2016-06-25] MEDS: 0.9 % SODIUM CHLORIDE 10 ML SYRINGE IV SCH ×3 (06:02→22:06)
[2016-06-25] MEDS: PANTOPRAZOLE 40 MG TABLET PO SCH (07:23)
[2016-06-25] MEDS: guaiFENesin 600 MG TAB.SR.12H PO SCH ×2 (08:40→22:06)
[2016-06-25] MEDS: OSELTAMIVIR PHOSPHATE 75 MG CAPSULE PO SCH ×2 (08:42→22:06)
[2016-06-25] MEDS: ENOXAPARIN 40 MG/0.4 ML SYRINGE SQ SCH (08:45)
[2016-06-25] MEDS: HYDROCODONE/APAP 7.5/325MG TABLET PO PRN ×3 (09:19→22:05)
--- NOTE | 2016-06-25 10:49 | Internal Med Progress Note ---
Medical - PN: Subj Patient information: Note initiated : 06/25/16 at 10:47 am Service Date, if different from initiated Date: [] Patient: Brii Leung 66 y/o F admitted on 06/22/16 for SOB/Influenza, COPD Exacerbation. Chief Complaint: [] Interval history: The patient seen examined, no acute overnight events the patient did walk the hallways yesterday, which made her sob and worsen her cough Her recovery is taking longer than expected, she note she is still c oughing up and having significant wheezing. Pertinent ROS: cough present, sob on exertion present, wheezing present. Denies headache, dizziness Denies chest pain, palpitations Denies abdominal pain, nausea or vomiting. - Constitutional Vitals: Vital Signs Temp Pulse Resp BP Pulse Ox 97.5 F L 63 16 138/78 92 06/25/16 06:43 06/25/16 08:00 06/25/16 08:00 06/25/16 06:43 06/25/16 08:00 Period Temp Pulse Resp BP Sys/Queen Pulse Ox Last 24 Hr 97.4 F-98.9 F 63-85 16-20 113-146/69-90 90-96 Intake and Output 06/24/16 06/25/16 06/25/16 21:59 05:59 13:59 Intake Total 760 / 760 450 / 450 Balance 760 / 760 450 / 450 Weight 189 lb 8 oz Intake & Output: Intake & Output 06/24/16 06/25/16 06/25/16 21:59 05:59 13:59 Intake Total 760 / 760 450 / 450 Balance 760 / 760 450 / 450 Weight 189 lb 8 oz Intake: Oral 760 / 760 450 / 450 Other: Meal Dinner Percent of Meal Consumed 100% # Voids 2 Exam: Constitutional; Afebrile, cooperative, alert, not in distress. Eyes- No icterus, Pupils equal, reactive, No periorbital swelling Ears- Ext ear normal, hearing normal to conversation. Neck- Midline trachea, supple Respiratory system: Air Entry equal on both sides, no accessory muscle use, but luisana wheezing still present. CVS- Rate rhythm regular, S1,S2 heard, no gallop, no rub. 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 Medical - PN: Obj Da - Labs CBC & Chem 7: 06/23/16 04:25 06/23/16 04:25 Labs: Abnormal Lab Results 06/23/16 06/23/16 04:25 04:25 MPV 11.3 H Gran % 86.2 H Lymph % (Auto) 7.3 L Lymph # 0.5 L BUN 24 H Glucose 130 H GGT 59 H Total Protein 5.8 L Meds: Medications Acetaminophen (Tylenol) 650 mg PO Q6HP PRN PRN Reason: PAIN/FEVER > 101 Acetaminophen/Hydrocodone Bitart ([place] 7.5/325mg) 1 tab PO Q4-6HP PRN PRN Reason: Pain Last Admin: 06/25/16 09:19 Dose: 1 tab Albuterol/Ipratropium (Duoneb) 3 ml NEB Q4HRT [facility] Last Admin: 06/25/16 07:39 Dose: 3 ml Bisacodyl (Dulcolax) 10 mg [place] Q2-3DAYS PRN PRN Reason: Constipation Enoxaparin Sodium (Lovenox) 40 mg SQ DAILY [facility] Last Admin: 06/25/16 08:45 Dose: 40 mg Guaifenesin (Mucinex) 600 mg PO BID [facility] Last Admin: 06/25/16 08:40 Dose: 600 mg Lorazepam (Ativan) 0.5 mg PO Q4HP PRN PRN Reason: ANXIETY/SEDATION Last Admin: 06/24/16 19:30 Dose: 0.5 mg Magnesium Hydroxide (Milk Of Magnesia) 30 ml PO DAILYP PRN PRN Reason: Constipation Last Admin: 06/23/16 14:58 Dose: 30 ml Methylprednisolone Sodium Succinate (Solu-Medrol) 40 mg IV Q6 [facility] Last Admin: 06/25/16 06:02 Dose: 40 mg Naloxone HCl (Narcan) 0.1 mg IV Q2MIN PRN PRN Reason: Opiate Reversal Ondansetron HCl (Zofran) 4 mg IV Q6HP PRN PRN Reason: Nausea And Vomiting Oseltamivir Phosphate (Tamiflu) 75 mg PO BID [facility] Last Admin: 06/25/16 08:42 Dose: 75 mg Pantoprazole Sodium (Protonix) 40 mg PO QAMAC [facility] Last Admin: 06/25/16 07:23 Dose: 40 mg Promethazine HCl (Phenergan) 12.5 mg IV Q6HP PRN PRN Reason: Nausea And Vomiting Last Admin: 06/24/16 19:30 Dose: 12.5 mg Senna (Senokot) 2 tab PO HS PRN PRN Reason: Constipation Sodium Biphosphate/Sodium Phosphate (Fleets Adult) 1 dose [place] Q3-4DAYS PRN PRN Reason: Constipation Sodium Chloride (Saline Flush) 10 ml IV Q8 [facility] Last Admin: 06/25/16 06:02 Dose: 10 ml Medical - PN: A/P - Time Spent With Patient Total time spent is greater than 50% in coordination of care (as documented) at patient's floor/unit and/or counseling patient: (1) Influenza A Status: Acute Assessment and plan: on tamiflu.continue same for now. day 5 today Current Visit: Yes (2) Acute exacerbation of chronic obstructive airways disease Status: Acute Assessment and plan: at baseline oxygen requirement still wheezing and sob on minimal activity will keep another day The patient is taking a bit longer than expected for recovery. she is on iv steroids, po abx, tamiflu and duonebs q 4 . Current Visit: Yes (3) Chronic respiratory failure with hypoxia Status: Acute Assessment and plan: at baseline oxygen requirements. Current Visit: Yes Medical - PN: Qual - Stroke Symptom Onset Unknown: No - VTE Deep Vein Thrombosis/Pulmonary Embolism Present on Admission: No
[2016-06-25] MEDS: LORazepam 0.5 MG TABLET PO PRN (13:22)
[2016-06-26] MEDS: methylPREDNISolone SOD SUCC 40 MG/ML VIAL IV SCH ×5 (00:55→23:59)
[2016-06-26] MEDS: IPRATROPIUM/ALBUTEROL 3 ML AMPUL.NEB NEB SCH ×6 (03:30→23:07)
[2016-06-26] MEDS: HYDROCODONE/APAP 7.5/325MG TABLET PO PRN ×3 (05:42→20:41)
[2016-06-26] MEDS: 0.9 % SODIUM CHLORIDE 10 ML SYRINGE IV SCH ×4 (05:43→20:41)
[2016-06-26] MEDS: PANTOPRAZOLE 40 MG TABLET PO SCH (07:16)
[2016-06-26] MEDS: guaiFENesin 600 MG TAB.SR.12H PO SCH ×2 (08:06→20:41)
[2016-06-26] MEDS: ENOXAPARIN 40 MG/0.4 ML SYRINGE SQ SCH (08:06)
[2016-06-26] MEDS: OSELTAMIVIR PHOSPHATE 75 MG CAPSULE PO SCH ×2 (08:06→20:41)
[2016-06-26] MEDS: LORazepam 0.5 MG TABLET PO PRN ×3 (09:33→20:41)
--- NOTE | 2016-06-26 12:15 | XRay Report ---
CLINICAL INFORMATION: COPD COMPARISON: 06/20/2016 FINDINGS: Heart is upper limits of normal in size - stable. Mediastinum and pulmonary vessels are normal. A moderate size wedge-shaped infiltrate is developed in the posterior left lower lobe. Lungs volumes are elevated compatible with the clinical diagnosis COPD. No effusions. Mild old compression fractures the upper mid thoracic spine - stable IMPRESSION: Moderate size wedge-shaped infiltrate or, less likely infarct, developing in the posterior left lower lobe. Please consider pulmonary embolus Underlying COPD Interpreted and Authenticated by: Memo Davila 06/26/16
--- NOTE | 2016-06-26 12:59 | Internal Med Progress Note ---
Medical - PN: Subj Patient information: Note initiated : 06/26/16 at 12:56 pm Service Date, if different from initiated Date: [] Patient: Brii Leung 66 y/o F admitted on 06/22/16 for SOB/Influenza, COPD Exacerbation. Chief Complaint: [] Interval history: The patient seen examined lying comfortably in bed still notes significant cough, with yellowish sputum Walking down the hallway makes her short of breath She feels she is getting better, but has cough and wheezing which does nto seem to be improving at the rate expected. Chest x ray repeated , PA and lateral view, which is read as new infiltrate in the left lower lobe/ vs infarction, advised CTPA. The patient CTPA ordered, the patient is on lovenox 40mg sq for DVT Prophylaxis , given her cough and wheezing its possible this is new infiltrate. Will get stat CT , get blood cultures, cbc, and chemistry Pertinent ROS: Denies headache, dizziness Denies chest pain, palpitations Present cough and shortness of breath Denies abdominal pain, nausea or vomiting. - Constitutional Vitals: Vital Signs Temp Pulse Resp BP Pulse Ox 95.9 F L 81 16 132/64 90 06/26/16 12:29 06/26/16 12:29 06/26/16 12:29 06/26/16 12:29 06/26/16 12:29 Period Temp Pulse Resp BP Sys/Queen Pulse Ox Last 24 Hr 95.9 F-98.3 F 55-90 16-24 120-158/64-80 90-96 Intake and Output 06/25/16 06/26/16 06/26/16 21:59 05:59 13:59 Intake Total 900 / 900 240 / 240 200 / 200 Output Total 200 / 200 200 / 200 Balance 700 / 700 240 / 240 0 / 0 Weight 190 lb Intake & Output: Intake & Output 06/25/16 06/26/16 06/26/16 21:59 05:59 13:59 Intake Total 900 / 900 240 / 240 200 / 200 Output Total 200 / 200 200 / 200 Balance 700 / 700 240 / 240 0 / 0 Weight 190 lb Intake: Oral 900 / 900 240 / 240 200 / 200 Output: Void Amount 200 / 200 200 / 200 Other: Meal Dinner Breakfast Percent of Meal Consumed 75% 100% # Voids 2 Exam: Constitutional; Afebrile, cooperative, alert, not in distress. Eyes- No icterus, Pupils equal, reactive, No periorbital swelling Ears- Ext ear normal, hearing normal to conversation. Neck- Midline trachea, supple Respiratory system: Air Entry equal on both sides, luisana decreased air entry and wheezing noted. CVS- Rate rhythm regular, S1,S2 heard, no gallop, no rub. 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 Medical - PN: Obj Da - Labs CBC & Chem 7: 06/23/16 04:25 06/23/16 04:25 Meds: Medications Acetaminophen (Tylenol) 650 mg PO Q6HP PRN PRN Reason: PAIN/FEVER > 101 Acetaminophen/Hydrocodone Bitart ([place] 7.5/325mg) 1 tab PO Q4-6HP PRN PRN Reason: Pain Last Admin: 06/26/16 05:42 Dose: 1 tab Albuterol/Ipratropium (Duoneb) 3 ml NEB Q4HRT [facility] Last Admin: 06/26/16 11:45 Dose: 3 ml Bisacodyl (Dulcolax) 10 mg [place] Q2-3DAYS PRN PRN Reason: Constipation Enoxaparin Sodium (Lovenox) 40 mg SQ DAILY [facility] Last Admin: 06/26/16 08:06 Dose: 40 mg Guaifenesin (Mucinex) 600 mg PO BID [facility] Last Admin: 06/26/16 08:06 Dose: 600 mg Lorazepam (Ativan) 0.5 mg PO Q4HP PRN PRN Reason: ANXIETY/SEDATION Last Admin: 06/26/16 09:33 Dose: 0.5 mg Magnesium Hydroxide (Milk Of Magnesia) 30 ml PO DAILYP PRN PRN Reason: Constipation Last Admin: 06/23/16 14:58 Dose: 30 ml Methylprednisolone Sodium Succinate (Solu-Medrol) 40 mg IV Q6 [facility] Last Admin: 06/26/16 11:18 Dose: 40 mg Naloxone HCl (Narcan) 0.1 mg IV Q2MIN PRN PRN Reason: Opiate Reversal Ondansetron HCl (Zofran) 4 mg IV Q6HP PRN PRN Reason: Nausea And Vomiting Oseltamivir Phosphate (Tamiflu) 75 mg PO BID [facility] Last Admin: 06/26/16 08:06 Dose: 75 mg Pantoprazole Sodium (Protonix) 40 mg PO QAMAC [facility] Last Admin: 06/26/16 07:16 Dose: 40 mg Promethazine HCl (Phenergan) 12.5 mg IV Q6HP PRN PRN Reason: Nausea And Vomiting Last Admin: 06/24/16 19:30 Dose: 12.5 mg Senna (Senokot) 2 tab PO HS PRN PRN Reason: Constipation Sodium Biphosphate/Sodium Phosphate (Fleets Adult) 1 dose [place] Q3-4DAYS PRN PRN Reason: Constipation Sodium Chloride (Saline Flush) 10 ml IV Q8 [facility] Last Admin: 06/26/16 05:43 Dose: 10 ml Medical - PN: A/P - Time Spent With Patient Total time spent is greater than 50% in coordination of care (as documented) at patient's floor/unit and/or counseling patient: (1) Influenza A Status: Acute Assessment and plan: on tamiflu.continue same for now. day 6 today Current Visit: Yes (2) Acute exacerbation of chronic obstructive airways disease Status: Acute Assessment and plan: at baseline oxygen requirement still wheezing and sob on minimal activity repeat X ray shows pna vs infarction. await CT lung. she is on iv steroids, po abx, tamiflu and duonebs q 4, will broaden Antibiotic coverage if CT suggestive of PNA . Current Visit: Yes (3) Chronic respiratory failure with hypoxia Status: Acute Assessment and plan: at baseline oxygen requirements. Current Visit: Yes Medical - PN: Qual - Stroke Symptom Onset Unknown: No - VTE Deep Vein Thrombosis/Pulmonary Embolism Present on Admission: No
[2016-06-26 13:44] LABS: Basophils # (Auto) 0.1 K/mcL (0.0-0.3); Basophils % (Auto) 0.4 % (0.0-2.0); Eosinophils # (Auto) 0 K/mcL (0.0-0.7); Eosinophils % (Auto) 0 % (0.0-7.0); Granulocytes % (Auto) 89.9 % (38.0-78.0); Lymphocytes # (Auto) 0.9 K/mcL (1.5-4.8); Lymphocytes % (Auto) 5.8 % (15.5-49.0); Mean Cell Volume 89.5 fL (80.0-100.0); Mean Corpuscular HGB Conc 32.2 g/dL (31.0-36.0); Mean Corpuscular Hemoglobin 28.8 pg (26.0-34.0); Monocytes # (Auto) 0.6 K/mcL (0.1-0.9); Monocytes % (Auto) 3.9 % (1.0-9.0); Platelet Count 236 K/mcL (140-440); RBC 4.59 M/mcL (4.00-5.20); Red Cell Distribution Width 13.9 % (11.5-14.5)
[2016-06-26] MEDS ORDERED: IOPAMIDOL 100 ML BOTTLE IV ONE (13:54)
[2016-06-26 13:58] LABS: ALT/SGPT 66 U/l (0-40); Albumin 3.8 gm/dL (3.2-5.2); Albumin/Globulin Ratio 1.7 (1.0-2.3); Alkaline Phosphatase 49 U/L (39-117); Bilirubin,Direct < 0.2 mg/dL (0.0-0.3); Blood Urea Nitrogen 23 mg/dl (8-23); Gamma Glutamyl Transpeptidase 145 U/L (5-36); Magnesium 2.2 mg/dL (1.6-2.5); Phosphorous 3.1 mg/dL (2.7-4.5); Uric Acid 2.2 mg/dL (2.5-8.0)
--- NOTE | 2016-06-26 14:14 | Cat Scan Report ---
CLINICAL INFORMATION: Shortness of breath COMPARISON: 06/30/[address] with contrast TECHNIQUE: Axial images obtained through the chest. 80 cc intravenous contrast administration was administered, and scanning was performed during pulmonary arterial phase. Sagittally and coronally reformatted images were obtained. MIP reformatted images. FINDINGS: The pulmonary arteries are normal in contour and caliber and well opacified - no evidence of embolus. Thoracic aorta contains scattered atherosclerotic plaque and is normal in contour and caliber. The heart is normal in size moderately with heavy calcific plaque present in the coronary arteries. There is no adenopathy in the mediastinal hilar or axillary regions. Esophagus is grossly normal. Thyroid is unremarkable. Pulmonary parenchymal windows show mild chronic bronchitis or asthma featuring elevation lung volumes, slight dilatation and wall thickening of the airways with mucus plugging within several of the bronchi. A 3.5 mm nodule seen in the anterior segment left upper lobe (image 61) and four mm nodule also in the anterior segment left upper lobe (image 57) There is moderate subsegmental atelectasis in both inferior lower lobes. Bones and soft tissues of the chest wall are normal. Images through the upper abdomen show no abnormality. IMPRESSION: 1. No evidence of pulmonary embolus - pulmonary arteries are normal 2. Moderate chronic bronchitis or asthma. Scattered regions of mucous plugging noted most prominent in the posterior segment left upper lobe 3. Subsegmental atelectasis both inferior lower lobes 4. Two small nodules in the benign size range in the anterior segment left upper lobe, 3.5 and 4 mm, respectively. Per Fleischner's Society recommendations - no radiographic follow-up is advised. Interpreted and Authenticated by: Memo Davila 06/26/16
[2016-06-27] MEDS: IPRATROPIUM/ALBUTEROL 3 ML AMPUL.NEB NEB SCH ×3 (03:48→11:39)
[2016-06-27] MEDS: 0.9 % SODIUM CHLORIDE 10 ML SYRINGE IV SCH (06:09)
[2016-06-27] MEDS: methylPREDNISolone SOD SUCC 40 MG/ML VIAL IV SCH ×2 (06:09→11:59)
[2016-06-27] MEDS: PANTOPRAZOLE 40 MG TABLET PO SCH (07:17)
[2016-06-27] MEDS: guaiFENesin 600 MG TAB.SR.12H PO SCH (08:08)
[2016-06-27] MEDS: ENOXAPARIN 40 MG/0.4 ML SYRINGE SQ SCH (08:08)
[2016-06-27] MEDS: HYDROCODONE/APAP 7.5/325MG TABLET PO PRN (08:08)
[2016-06-27] MEDS: OSELTAMIVIR PHOSPHATE 75 MG CAPSULE PO SCH (08:08)
[2016-06-27] MEDS: LORazepam 0.5 MG TABLET PO PRN (08:08)
--- NOTE | 2016-06-27 09:58 | Discharge Summary ---
Medical - DS: Prov Patient information: Note initiated : 06/27/16 at 9:52 am Service Date, if different from initiated Date: [] Patient: Brii Leung 66 y/o F admitted on 06/22/16 for SOB/Influenza, COPD Exacerbation. Chief Complaint: [] Date of admission: 06/22/16 13:46 Discharge date: 06/27/16 Primary care physician: [f_Reg Prim Care Provider] Admitting clinician: Jael Weiss Discharging clinician: Jael Weiss Medical - DS: Meds - Discharge Medications Prescriptions: Doxycycline Hyclate [Vibramycin] 100 mg PO BID #14 capsule predniSONE [Prednisone] 10 mg PO ONCE #32 tablet Active and Home Medications: Home Medications predniSONE [Prednisone] 20 mg PO Q48 06/20/16 [History Confirmed 06/20/16 Last Taken 06/19/16] Active Medications Acetaminophen (Tylenol) 650 mg PO Q6HP PRN PRN Reason: PAIN/FEVER > 101 Acetaminophen/Hydrocodone Bitart ([place] 7.5/325mg) 1 tab PO Q4-6HP PRN PRN Reason: Pain Last Admin: 06/27/16 08:08 Dose: 1 tab Albuterol/Ipratropium (Duoneb) 3 ml NEB Q4HRT [facility] Last Admin: 06/27/16 07:50 Dose: 3 ml Bisacodyl (Dulcolax) 10 mg DC Q2-3DAYS PRN PRN Reason: Constipation Enoxaparin Sodium (Lovenox) 40 mg SQ DAILY [facility] Last Admin: 06/27/16 08:08 Dose: 40 mg Guaifenesin (Mucinex) 600 mg PO BID [facility] Last Admin: 06/27/16 08:08 Dose: 600 mg Lorazepam (Ativan) 0.5 mg PO Q4HP PRN PRN Reason: ANXIETY/SEDATION Last Admin: 06/27/16 08:08 Dose: 0.5 mg Magnesium Hydroxide (Milk Of Magnesia) 30 ml PO DAILYP PRN PRN Reason: Constipation Last Admin: 06/23/16 14:58 Dose: 30 ml Methylprednisolone Sodium Succinate (Solu-Medrol) 40 mg IV Q6 [facility] Last Admin: 06/27/16 06:09 Dose: 40 mg Naloxone HCl (Narcan) 0.1 mg IV Q2MIN PRN PRN Reason: Opiate Reversal Ondansetron HCl (Zofran) 4 mg IV Q6HP PRN PRN Reason: Nausea And Vomiting Oseltamivir Phosphate (Tamiflu) 75 mg PO BID [facility] Last Admin: 06/27/16 08:08 Dose: 75 mg Pantoprazole Sodium (Protonix) 40 mg PO QAMAC [facility] Last Admin: 06/27/16 07:17 Dose: 40 mg Promethazine HCl (Phenergan) 12.5 mg IV Q6HP PRN PRN Reason: Nausea And Vomiting Last Admin: 06/24/16 19:30 Dose: 12.5 mg Senna (Senokot) 2 tab PO HS PRN PRN Reason: Constipation Sodium Biphosphate/Sodium Phosphate (Fleets Adult) 1 dose DC Q3-4DAYS PRN PRN Reason: Constipation Sodium Chloride (Saline Flush) 10 ml IV Q8 [facility] Last Admin: 06/27/16 06:09 Dose: 10 ml Medical - DS: Hosp Hospital course: Mr. Leung is a 66 year old female with h/o COPD who presented to the hospital with cough, shortness of breath, wheezing. The patient flu was positive and she was admitted to the hospital for further management. COPD exacerbation- The patient uses oxygen at home and she was at baseline oxygen requirements. She was treated with tamiflu, IV solumedrol, duonebs while she was inpatient. The patient took a prolonged time to improve her air entry. The patient did improve slowly. The patient completed her course of Tamiflu while she was in the hospital. She continued to have cough during the hospital stay. However her air entry improved significantly since admission. On the day of discharge today, the patient is on baseline oxygen requirement, but she still has cough and wheezing. The patient is able to walk in the hallways, and able to ambulate in the room. She is speaking full sentences and does not use accessory muscles to breath. She will be transitioned to oral medications. I reviewed with her if she is willing to go home today and take her oral medications at home. The patient was ok going home. She will be discharged on a course of doxycycline for 7 days, and a prednisone taper over 12 days. The rest of the patient condition was unchanged, she will resume her home medications at discharge. Discharge diagnosis: COPD exacerbation - Time Spent with Patient Total time spent providing and/or coordinating discharge services: Less than 30 minutes Medical - DS: Exam - Constitutional Vitals: Vital Signs Temp Pulse Pulse Resp BP BP Pulse Ox 06/27/16 07:53 65 16 93 06/27/16 07:52 62 16 93 06/27/16 07:10 97.2 F L 66 18 150/98 92 06/27/16 04:00 97.7 F 71 20 150/78 94 06/27/16 00:00 97.4 F L 61 20 158/80 94 06/26/16 23:11 68 16 06/26/16 23:08 94 06/26/16 20:00 99.1 F 70 18 148/78 94 06/26/16 19:32 76 20 06/26/16 16:00 97.9 F 85 20 132/84 90 06/26/16 15:39 67 18 06/26/16 15:34 92 06/26/16 12:29 95.9 F L 81 16 132/64 90 06/26/16 11:47 80 22 Intake and Output 06/26/16 06/27/16 06/27/16 21:59 05:59 13:59 Intake Total 840 / 840 400 / 400 Output Total 300 / 300 300 / 300 Balance 840 / 840 100 / 100 -300 / -300 Intake: Oral 840 / 840 400 / 400 Output: Void Amount 300 / 300 300 / 300 Other: Meal Dinner Percent of Meal Consumed 100% Feeding Ability Independent # Voids 2 1 Weight 190 lb 9.6 oz General appearance: average body habitus, no acute distress - Head Head exam: Present: atraumatic, normal inspection - Neck Neck exam: Present: normal inspection - Respiratory Respiratory exam: Present: normal respiratory exam, prolonged expiratory phase, wheezes. Absent: accessory muscle use Additional comments: Respiratory status much improved since discharge, the patient still has wheezing but is able to ambulate in the room very well without significant distress. She has chr shortness of breath on ambulation as per her which has been bothering her over the last 2 -3 months. - Cardiovascular Cardiovascular exam: Present: normal rate and rhythm, +S1, +S2 - Neurological Exam Neurological exam: Present: alert, CN II-XII intact, oriented X3 Medical - DS: Data Labs on day of discharge: Labs from last 24 hours 01/21/17 01/21/17 13:00 13:00 WBC 14.9 H RBC 4.59 Hgb 13.2 Hct 41.0 MCV 89.5 MCH 28.8 MCHC 32.2 RDW 13.9 Plt Count 236 MPV 11.1 H Gran % 89.9 H Lymph % (Auto) 5.8 L [place] % (Auto) 3.9 Eos % (Auto) 0 Baso % (Auto) 0.4 Gran # 13.4 H Lymph # 0.9 L [place] # 0.6 Eos # 0 Baso # 0.1 Sodium 138 Potassium 4.1 Chloride 101 Carbon Dioxide 23 Anion Gap 14.0 BUN 23 Creatinine 0.8 GFR Calculation 78 Glucose 171 H Uric Acid 2.2 L Calcium 8.9 Phosphorus 3.1 Magnesium 2.2 Total Bilirubin 0.2 Direct Bilirubin < 0.2 GGT 145 H AST 20 ALT 66 H Alkaline Phosphatase 49 Lactate Dehydrogenase 201 Total Protein 6.1 Albumin 3.8 Globulin 2.3 Albumin/Globulin Ratio 1.7 Triglycerides 216 H Medical - DS: A/P - Patient/Caregiver Discharge Instructions Activity: increase activity as tolerated, wear oxygen at all times Diet: Regular Diet Additional Instructions: Take antibiotics x 7 days Take prednisone as instructed, taper over 12 days. Go back to the ER if worsening shortness of breath, chest pains or fever. - Problem Maintenance (1) Influenza A Status: Acute (2) Acute exacerbation of chronic obstructive airways disease Status: Acute (3) Chronic respiratory failure with hypoxia Status: Acute - Follow up Plan Follow up with: Qamar Bang MD [Primary Care Provider] - Disposition: Home, Self-Care Prognosis: Fair Rehab Potential: Fair I certify that the patient requires SNF services: No Overall status at discharge: patient is progressing back to baseline Medical - DS: Qual - VTE Deep Vein Thrombosis/Pulmonary Embolism Present on Admission: No
== END 2016-06-27 13:00 | disposition home or self-care (01) | DRG 194 ==
LOC: UNDODISIN → MEDSUR 16:25 → ED 16:25 → MEDSUR 22:05
PROVIDERS: ADMIT Internal Medicine; ATTEND Internal Medicine

== ENCOUNTER 2020-04-06 19:24 | Inpatient (IN) ==
[2020-04-06] MEDS ORDERED: IOPAMIDOL 100 ML BOTTLE IV ONE (19:25)
[2020-04-06] MEDS ORDERED: 0.9 % SODIUM CHLORIDE 2,000 ML IV ONE (20:06)
[2020-04-06] MEDS ORDERED: ONDANSETRON 4 MG/2 ML VIAL IV ONE (20:06)
[2020-04-06] MEDS ORDERED: HYDROmorphone 0.5 MG/0.5 ML SYRINGE IV PRN (20:06)
[2020-04-06] MEDS ORDERED: PIPERACILLIN SODIUM/TAZOBACTAM 3.375 GM in DEXTROSE 5% IN WATER 50 ML IV ONE (20:10)
--- NOTE | 2020-04-06 20:37 | Emergency Department Note ---
Abdominal Pain HPI General Chief Complaint: Abdominal Pain Stated Complaint: suspects constipation Time Seen by Provider: 04/06/20 19:41 Source: EMS Mode of arrival: EMS Limitations: no limitations History of Present Illness HPI Narrative: Narrative: 70-year-old female presents with abdominal pain. Sudden onset a couple of hours ago. States she did not feel well earlier but cannot tell me when that started. Also cannot describe what she means by not feeling well. States "I just did not feel great ". States she thought it was just constipation because her last normal bowel movement was about 4 days ago. However she did check into triage and then the first 30-minute she spent on the toilet and was able to have a fairly large bowel movement that was slightly loose. She does not feel any better after that. Does feel a little bit lightheaded. Also weak. No cough or cold symptoms. No fever or chills. Has vomited several times of the last couple of hours. States she has not had anything like this, this bad previously. No home treatments. No dysuria or frequency. Related Data Home Medications Medication Instructions Recorded Confirmed albuterol sulfate 2 puff INH Q4-6HP PRN 05/23/15 03/19/20 aspirin 81 mg tablet,delayed 81 mg PO QDAY 02/09/19 03/19/20 release cetirizine 10 mg tablet 10 mg PO QDAY PRN tab 02/09/19 03/19/20 citalopram 40 mg tablet 40 mg PO QDAY tab 02/09/19 03/19/20 multivitamin 1 tab PO QAM 02/09/19 03/19/20 omeprazole 20 mg capsule,delayed 40 mg PO QDAY cap 02/09/19 03/19/20 release fluticasone propionate 50 1 spray INTRANASAL QDAY 05/09/19 03/19/20 mcg/actuation nasal spray,suspension triamterene 37.5 1 cap PO QAM PRN 12/26/19 03/19/20 mg-hydrochlorothiazide 25 mg capsule albuterol sulfate 2.5 mg/0.5 mL 2.5 mg INHALATION .q4 each 02/13/20 03/19/20 solution for nebulization ezetimibe 10 mg tablet 10 mg PO QDAY 02/13/20 03/19/20 lisinopril 2.5 mg tablet 2.5 mg PO QDAY 02/13/20 03/19/20 nicotine 21 mg/24 hr daily 1 patch TRANSDERMA Q24H 02/13/20 03/19/20 transdermal patch furosemide 20 mg tablet 20 mg PO QDAY 02/19/20 03/19/20 nitroglycerin 0.4 mg sublingual 0.4 mg SUBLINGUAL Q5M PRN 02/19/20 03/19/20 tablet rosuvastatin 5 mg tablet 5 mg PO QDAY 02/19/20 03/19/20 spironolactone 25 mg tablet 25 mg PO QDAY 02/19/20 03/19/20 Previous Rx's Medication Instructions Recorded Incentive Spirometer #1 ea 10/19/18 Nocturnal oxygen increase #1 ea 11/02/18 ipratropium 0.5 mg-albuterol 3 mg 3 ml INHALATION QID PRN #180 ml 08/07/19 (2.5 mg base)/3 mL nebulization soln budesonide-formoterol HFA 160 2 puff INHALATION BID #10.2 g 12/26/19 mcg-4.5 mcg/actuation aerosol inhaler tiotropium bromide 2.5 2 puff INHALATION QDAY #4 g 01/22/20 mcg/actuation mist for inhalation nicotine (polacrilex) 4 mg gum 4 mg BUCCAL Q4H PRN #40 each 02/19/20 lamotrigine 25 mg tablet See Rx Instructions .ROUTE 03/19/20 .COMPLEX #30 tab prednisone 20 mg tablet 20 mg PO QDAY #5 tab 03/24/20 Allergies Allergy/AdvReac Type Severity Reaction Status Date / Time No Known Drug Allergies Allergy Verified 03/24/20 09:45 Review of Systems ROS ROS Narrative: Narrative: All systems ED: reviewed and negative except as stated. [facility] Narrative Patient History Narrative: Narrative: Medical/Surgical/Family History All Active Problems (Updated 04/06/20 @ 20:41 by LAZARUS Andrew) Abdominal pain (Acute) Hypoxemia (Acute) 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) Generalized anxiety disorder (Acute) Tobacco use disorder (Acute) H/O coronary angiogram (Chronic ~02/10/20) H/O cardiac catheterization (Chronic ~02/10/20) O2 dependent (Chronic) CAD (coronary artery disease), [place] coronary artery (Chronic) Esophageal stricture (Chronic) Stress hyperglycemia (Chronic) Elevated glycohemoglobin (Chronic) Nicotine dependence (Chronic) Major depressive disorder (Chronic) Acute myocardial infarction (Chronic) Left supraspinatus tendinitis (Chronic) Osteoarthritis of multiple joints (Chronic) Edema (Chronic) GERD (gastroesophageal reflux disease) (Chronic) Loss of teeth due to extraction (Chronic) COLD (chronic obstructive lung disease) (Chronic) Acute exacerbation of chronic bronchitis (Chronic) Anxiety disorder (Chronic) Recurrent major depression (Chronic) Overweight (Chronic) Vitamin D deficiency (Chronic) Acute exacerbation of chronic obstructive airways disease (Chronic) Tobacco use disorder, severe, dependence (Chronic) Anxiety (Chronic) Influenza A (Chronic) Chronic respiratory failure with hypoxia (Chronic) Influenza (Chronic) Acute exacerbation of chronic obstructive airways disease (Chronic) Medical History Acute exacerbation of chronic bronchitis (Chronic) Acute exacerbation of chronic obstructive airways disease (Chronic) Acute myocardial infarction (Chronic) Anxiety (Chronic) Anxiety disorder (Chronic) CAD (coronary artery disease), [place] coronary artery (Chronic) Chronic respiratory failure with hypoxia (Chronic) COLD (chronic obstructive lung disease) (Chronic) Edema (Chronic) Elevated glycohemoglobin (Chronic) Esophageal stricture (Chronic) GERD (gastroesophageal reflux disease) (Chronic) H/O coronary angiogram (Chronic ~02/10/20) With graft revisualization and left ventriculography Hypoxemia (Acute) Influenza (Chronic) Influenza A (Chronic) Left supraspinatus tendinitis (Chronic) Loss of teeth due to extraction (Chronic) Major depressive disorder (Chronic) Nicotine dependence (Chronic) O2 dependent (Chronic) 2.5 L continuously Osteoarthritis of multiple joints (Chronic) Overweight (Chronic) Recurrent major depression (Chronic) Stress hyperglycemia (Chronic) Tobacco use disorder, severe, dependence (Chronic) Vitamin D deficiency (Chronic) Surgical History H/O cardiac catheterization (Chronic ~02/10/20) History of esophagogastroduodenoscopy (EGD) (Chronic) History of eye surgery (Chronic) History of tonsillectomy (Chronic) History of tubal ligation (Chronic) Hx of CABG (Chronic) Family History Mother Cardiac arrhythmia Daughter Migraine Social History Smoking Status: Former smoker Alcohol Intake Frequency: holiday/special occasion only Substance Use: does not use Exam Narrative Narrative: Narrative: General Limitations: no limitations General appearance: Present alert and other (Grayish pale, dry mucous membranes) Head Head: Present atraumatic and normocephalic Eye Eye: Present normal appearance; Absent conjunctival injection ENT ENT: Present normal oropharynx, mucous membranes moist, TM's normal bilaterally and normal external ear exam Neck Neck: Present normal inspection and trachea midline; Absent lymphadenopathy Chest Chest: Present normal inspection and symmetric chest wall rise Respiratory Respiratory: Present normal lung sounds bilaterally and other (Diminished in bases bilaterally otherwise clear throughout); Absent respiratory distress, rales/crackles, wheezes, stridor and accessory muscle use Cardiovascular Cardiovascular: Present regular rate and normal heart sounds Adbominal Abdominal: Present soft, tenderness (RLQ, LLQ), guarding (RLQ, LLQ) and hyperactive bowel sounds; Absent distention Extremities Extremities: Present normal capillary refill and pedal edema (1+ bilat ("chronic")); Absent joint swelling Neurological Neurological: Present alert, oriented X3 and normal gait Psychiatric Psychiatric: Present normal affect and normal mood Skin Skin: Present warm (WNL) and dry; Absent normal color (pale/slightly grayish upper body) and rash Course Course Course Narrative: @[address] Jaramillo who assumes care due to shift change. Vital Signs Vital signs: Vital Signs Blood Pressure 68/52 04/06/20 20:04 Temperature 94.5 F L 04/06/20 21:41 Pulse Rate 79 04/06/20 21:41 Respiratory Rate 24 H 04/06/20 20:46 Blood Pressure 105/65 04/06/20 21:41 Pulse Oximetry (%) 99 04/06/20 21:41 MDM MDM Narrative Medical decision making narrative: Narrative: Lab Data Result diagrams: 04/06/20 21:27 04/06/20 21:26 Discharge Plan Patient/Caregiver Discharge Instructions Pt seen by IS ANALYST/PA only: No Clinical Impression: Abdominal pain Patient Disposition: Still a Patient Condition: Serious Follow up with: Lance Blake MD [Primary Care Provider] - Prescriptions: No Action lamotrigine [Lamictal] 25 mg tablet See Rx Instructions .ROUTE .COMPLEX Qty: 30 RF: 0 furosemide 20 mg tablet 20 mg PO QDAY RF: 0 spironolactone 25 mg tablet 25 mg PO QDAY RF: 0 rosuvastatin 5 mg tablet 5 mg PO QDAY RF: 0 nitroglycerin 0.4 mg tablet, sublingual 0.4 mg SUBLINGUAL Q5M PRNRF: 0 nicotine (polacrilex) 4 mg gum 4 mg BUCCAL Q4H PRN (Reason: nicotine cravings) Qty: 40 RF: 0 (DME) Nocturnal oxygen increase Qty: 1 RF: 0 Spiriva Respimat 2.5 mcg/actuation mist 2 puff INHALATION QDAY Qty: 4 RF: 6 aspirin [Adult Aspirin Regimen] 81 mg tablet,delayed release (DR/EC) 81 mg PO QDAY RF: 0 citalopram 40 mg tablet 40 mg PO QDAY RF: 0 cetirizine [Aller-Catrina] 10 mg tablet 10 mg PO QDAY PRNRF: 0 multivitamin tablet 1 tab PO QAM RF: 0 fluticasone propionate 50 mcg/actuation spray,suspension 1 spray INTRANASAL QDAY RF: 0 nicotine 21 mg/24 hr patch 24 hour 1 patch TRANSDERMA Q24H RF: 0 ezetimibe [Zetia] 10 mg tablet 10 mg PO QDAY RF: 0 albuterol sulfate 2.5 mg/0.5 mL solution for nebulization 2.5 mg INHALATION .q4 RF: 0 lisinopril 2.5 mg tablet 2.5 mg PO QDAY RF: 0 (DME) Incentive Spirometer Qty: 1 RF: 0 ipratropium-albuterol 0.5 mg-3 mg(2.5 mg base)/3 mL solution for nebulization 3 ml INHALATION QID PRN (Reason: shortness of breath or wheezing) Qty: 180 RF: 6 triamterene-hydrochlorothiazid [Dyazide] 37.5-25 mg capsule 1 cap PO QAM PRNRF: 0 Symbicort 160-4.5 mcg/actuation HFA aerosol inhaler 2 puff INHALATION BID Qty: 10.2 RF: 11 prednisone 20 mg tablet 20 mg PO QDAY Qty: 5 RF: 0 albuterol sulfate 1 PUFF inhaler 2 puff INH Q4-6HP PRN (Reason: Shortness Of Breath) RF: 0 omeprazole 20 mg capsule,delayed release(DR/EC) 40 mg PO QDAY RF: 0
--- NOTE | 2020-04-06 21:57 | XRay Report ---
INDICATION: generalized weakness TECHNIQUE: AP portable upright chest x-ray COMPARISON: Previous examination dated 01/23/2020 FINDINGS: Previous median sternotomy. Surgical clips consistent with coronary artery bypass procedure Lungs:Linear densities at both lung bases consistent with atelectasis or scarring. No parenchymal consolidation. Heart, vascular:No significant cardiomegaly. Pulmonary vascularity is normal. No pulmonary edema or pulmonary congestion Mediastinum, lam:No mediastinal widening. No hilar mass Pleura:No pleural fluid. No pleural-based mass or calcification Skeletal:Negative. IMPRESSION: 1. Previous coronary artery bypass procedure 2. Bibasilar linear densities consistent with atelectasis or scarring Interpreted and Authenticated by: Memo Kennedy 04/06/20
[2020-04-06 22:02] LABS: POC Blood Urea Nitrogen 21 mg/dL (6-20); POC CO2 22 mmol/L (22-30); POC Calcium, Ionized 1.15 mmEq/L (1.16-1.32); POC Chloride 106 mEq/L (96-108); POC Creatinine 1.4 mg/dL (0.6-1.2); POC Glucose, Random 106 mg/dL (70-105); POC Hematocrit 35 % (36-48); POC Potassium 4.1 mEql/L (3.3-5.1); POC Sodium 142 mEq/L (133-145)
[2020-04-06 22:17] LABS: Basophils # (Auto) 0.05 K/mcL (0.00-0.20); Basophils % (Auto) 0.2 % (0.0-2.0); Eosinophils # (Auto) 0.14 K/mcL (0.00-0.70); Eosinophils % (Auto) 0.7 % (0.0-7.0); Hematocrit 35.6 % (36.0-48.0); Lymphocytes # (Auto) 1.76 K/mcL (1.50-4.80); Lymphocytes % (Auto) 8.6 % (15.0-49.0); Mean Cell Volume 94.7 fL (80.0-100.0); Mean Corpuscular HGB Conc 30.9 g/dL (31.0-36.0); Monocytes # (Auto) 0.98 K/mcL (0.10-0.90); Monocytes % (Auto) 4.8 % (1.0-12.0); Neutrophils % (Auto) 85.7 % (38.0-78.0); Platelet Count 194 K/mcL (140-440); RBC 3.76 M/mcL (4.00-5.20); Red Cell Distribution Width 15.9 % (11.5-14.5); WBC 20.6 K/mcL (4.5-11.0)
[2020-04-06 22:55] LABS: Appearance,Urine HAZY (Clear); Bilirubin,Urine Negative (Negative); Color,Urine YELLOW; Culture Indicated,Urine No; Glucose,Urine (UA) Negative (Negative); Ketones,Urine Negative (Negative); Leukocyte Esterase,Urine Negative /ug (Negative); Nitrate,Urine Negative (Negative); Protein,Urine Negative (Negative); Specific Gravity,Urine 1.015 (1.000-1.035); Urine Blood Negative (Negative); Urobilinogen,Urine Negative
[2020-04-06 23:15] LABS: ALT/SGPT 9 U/L (<40); AST/SGOT 17 U/L (<32); Albumin 3.5 gm/dL (3.2-5.2); Albumin/Globulin Ratio 1.4 (1.0-2.3); Alkaline Phosphatase 53 U/L (39-117); Bilirubin,Total 0.4 mg/dL (0.1-1.0); Blood Urea Nitrogen 19 mg/dL (8-23); Calcium 8.6 mg/dL (8.6-10.4); Carbon Dioxide 22 mmol/L (22-30); Chloride 106 mmol/L (96-108); Globulin 2.5 gm/dL (2.2-3.7); Glomerular Filtration Rate 38; Glucose 114 mg/dL (70-105)
--- NOTE | 2020-04-06 23:19 | Emergency Department Note ---
Abdominal Pain HPI General Chief Complaint: Abdominal Pain Stated Complaint: suspects constipation Time Seen by Provider: 04/06/20 19:41 Source: EMS Mode of arrival: EMS Limitations: no limitations History of Present Illness HPI Narrative: Narrative: This patient is checked out to me by Tamera QIU. We discussed her case as it was worked up and I agree with her evaluation management documentation. This patient initially came in for constipation x4 days but she has had several rounds of diarrhea here. Significant belly pain as well. Blood pressures have been low and we have had to give her IV fluid to keep those up. However it is noted that she has chronically low blood pressures. Additionally she has had to be on oxygen but she is on oxygen at home so this is chronic. Related Data Home Medications Medication Instructions Recorded Confirmed albuterol sulfate 2 puff INH Q4-6HP PRN 05/23/15 03/19/20 aspirin 81 mg tablet,delayed 81 mg PO QDAY 02/09/19 03/19/20 release cetirizine 10 mg tablet 10 mg PO QDAY PRN tab 02/09/19 03/19/20 citalopram 40 mg tablet 40 mg PO QDAY tab 02/09/19 03/19/20 multivitamin 1 tab PO QAM 02/09/19 03/19/20 omeprazole 20 mg capsule,delayed 40 mg PO QDAY cap 02/09/19 03/19/20 release fluticasone propionate 50 1 spray INTRANASAL QDAY 05/09/19 03/19/20 mcg/actuation nasal spray,suspension triamterene 37.5 1 cap PO QAM PRN 12/26/19 03/19/20 mg-hydrochlorothiazide 25 mg capsule albuterol sulfate 2.5 mg/0.5 mL 2.5 mg INHALATION .q4 each 02/13/20 03/19/20 solution for nebulization ezetimibe 10 mg tablet 10 mg PO QDAY 02/13/20 03/19/20 lisinopril 2.5 mg tablet 2.5 mg PO QDAY 02/13/20 03/19/20 nicotine 21 mg/24 hr daily 1 patch TRANSDERMA Q24H 02/13/20 03/19/20 transdermal patch furosemide 20 mg tablet 20 mg PO QDAY 02/19/20 03/19/20 nitroglycerin 0.4 mg sublingual 0.4 mg SUBLINGUAL Q5M PRN 02/19/20 03/19/20 tablet rosuvastatin 5 mg tablet 5 mg PO QDAY 02/19/20 03/19/20 spironolactone 25 mg tablet 25 mg PO QDAY 02/19/20 03/19/20 Previous Rx's Medication Instructions Recorded Incentive Spirometer #1 ea 10/19/18 Nocturnal oxygen increase #1 ea 11/02/18 ipratropium 0.5 mg-albuterol 3 mg 3 ml INHALATION QID PRN #180 ml 08/07/19 (2.5 mg base)/3 mL nebulization soln budesonide-formoterol HFA 160 2 puff INHALATION BID #10.2 g 12/26/19 mcg-4.5 mcg/actuation aerosol inhaler tiotropium bromide 2.5 2 puff INHALATION QDAY #4 g 01/22/20 mcg/actuation mist for inhalation nicotine (polacrilex) 4 mg gum 4 mg BUCCAL Q4H PRN #40 each 02/19/20 lamotrigine 25 mg tablet See Rx Instructions .ROUTE 03/19/20 .COMPLEX #30 tab prednisone 20 mg tablet 20 mg PO QDAY #5 tab 03/24/20 Allergies Allergy/AdvReac Type Severity Reaction Status Date / Time No Known Drug Allergies Allergy Verified 03/24/20 09:45 Review of Systems ROS ROS Narrative: Narrative: PFSH Narrative Patient History Narrative: Narrative: Medical/Surgical/Family History All Active Problems Acute dehydration (Acute) Acute kidney injury (Acute) Segmental colitis (Acute) Hypoxemia (Acute) 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) Generalized anxiety disorder (Acute) Tobacco use disorder (Acute) H/O coronary angiogram (Chronic ~02/10/20) H/O cardiac catheterization (Chronic ~02/10/20) O2 dependent (Chronic) CAD (coronary artery disease), [place] coronary artery (Chronic) Esophageal stricture (Chronic) Stress hyperglycemia (Chronic) Elevated glycohemoglobin (Chronic) Nicotine dependence (Chronic) Major depressive disorder (Chronic) Acute myocardial infarction (Chronic) Left supraspinatus tendinitis (Chronic) Osteoarthritis of multiple joints (Chronic) Edema (Chronic) GERD (gastroesophageal reflux disease) (Chronic) Loss of teeth due to extraction (Chronic) COLD (chronic obstructive lung disease) (Chronic) Acute exacerbation of chronic bronchitis (Chronic) Anxiety disorder (Chronic) Recurrent major depression (Chronic) Overweight (Chronic) Vitamin D deficiency (Chronic) Acute exacerbation of chronic obstructive airways disease (Chronic) Tobacco use disorder, severe, dependence (Chronic) Anxiety (Chronic) Influenza A (Chronic) Chronic respiratory failure with hypoxia (Chronic) Influenza (Chronic) Acute exacerbation of chronic obstructive airways disease (Chronic) Medical History Acute exacerbation of chronic bronchitis (Chronic) Acute exacerbation of chronic obstructive airways disease (Chronic) Acute myocardial infarction (Chronic) Anxiety (Chronic) Anxiety disorder (Chronic) CAD (coronary artery disease), [place] coronary artery (Chronic) Chronic respiratory failure with hypoxia (Chronic) COLD (chronic obstructive lung disease) (Chronic) Edema (Chronic) Elevated glycohemoglobin (Chronic) Esophageal stricture (Chronic) GERD (gastroesophageal reflux disease) (Chronic) H/O coronary angiogram (Chronic ~02/10/20) With graft revisualization and left ventriculography Hypoxemia (Acute) Influenza (Chronic) Influenza A (Chronic) Left supraspinatus tendinitis (Chronic) Loss of teeth due to extraction (Chronic) Major depressive disorder (Chronic) Nicotine dependence (Chronic) O2 dependent (Chronic) 2.5 L continuously Osteoarthritis of multiple joints (Chronic) Overweight (Chronic) Recurrent major depression (Chronic) Stress hyperglycemia (Chronic) Tobacco use disorder, severe, dependence (Chronic) Vitamin D deficiency (Chronic) Surgical History H/O cardiac catheterization (Chronic ~02/10/20) History of esophagogastroduodenoscopy (EGD) (Chronic) History of eye surgery (Chronic) History of tonsillectomy (Chronic) History of tubal ligation (Chronic) Hx of CABG (Chronic) Family History Mother Cardiac arrhythmia Daughter Migraine Social History Smoking Status: Former smoker Alcohol Intake Frequency: holiday/special occasion only Substance Use: does not use Exam Narrative Narrative: Narrative: General Limitations: no limitations Course Vital Signs Vital signs: Vital Signs Blood Pressure 68/52 04/06/20 20:04 Temperature 99.5 F H 04/07/20 03:13 Pulse Rate 77 04/07/20 03:13 Respiratory Rate 20 04/07/20 03:13 Blood Pressure 106/57 04/07/20 03:13 Pulse Oximetry (%) 98 04/07/20 03:13 MDM MDM Narrative Medical decision making narrative: Narrative:Patient is on oxygen at home 2.5 L. Blood pressures have normalized with IV fluids. She did not receive any pain medicine because her blood pressures were still low. We started her on some Zosyn after getting blood cultures for possible sepsis CT scan of the abdomen and pelvis shows colitis of the distal transverse descending and proximal sigmoid colon. Other chronic findings noted Urinalysis [id number] dipstick shows specific gravity 1.030 otherwise normal- consistent with dehydration. She already received 1 L of IV fluid we will go ahead and give her another given her creatinine and urinalysis. Leach catheter was placed Covid testing is negative. Stool was sent off for C. difficile testing as well as other tests-she has had multiple rounds of diarrhea. C. difficile testing was negative she will require inpatient admission. I initially discussed the situation with Dr. Gill, our general surgeon. He felt that this likely was segmental colitis. Recommended antibiotics with ciprofloxacin and metronidazole. Start budesonide as well. He was agreeable with consulting on the patient and did not think that she needed urgent colonoscopy. He deferred to hospitalist to admit however as the patient has multiple comorbidities. I then discussed the situation with Dr. Mehta our hospitalist. He agreed to accept the patient for admission. I will write transition orders I discussed the results with the patient. She is agreeable with coming in to be cared for here Lab Data Lab results reviewed: Yes I reviewed the patient's lab results. Result diagrams: 04/06/20 21:27 04/06/20 21:26 Labs: Lab Results 04/06/20 04/06/20 04/06/20 Range/Units 21:26 21:27 21:27 WBC 20.6 H (4.5-11.0) K/mcL RBC 3.76 L (4.00-5.20) M/mcL Hgb 11.0 L (12.0-15.0) g/dL Hct 35.6 L (36.0-48.0) % POC Hct 35 L (36-48) % MCV 94.7 (80.0-100.0) fL MCH 29.3 (26.0-34.0) pg MCHC 30.9 L (31.0-36.0) g/dL RDW 15.9 H (11.5-14.5) % Plt Count 194 (140-440) K/mcL MPV 13.0 H (7.4-10.4) fL Neut % (Auto) 85.7 H (38.0-78.0) % Lymph % (Auto) 8.6 L (15.0-49.0) % [place] % (Auto) 4.8 (1.0-12.0) % Eos % (Auto) 0.7 (0.0-7.0) % Baso % (Auto) 0.2 (0.0-2.0) % Lymph # (Auto) 1.76 (1.50-4.80) K/mcL [place] # (Auto) 0.98 H (0.10-0.90) K/mcL Eos # (Auto) 0.14 (0.00-0.70) K/mcL Baso # (Auto) 0.05 (0.00-0.20) K/mcL Absolute Neutrophils 17.62 H (1.80-8.00) K/mcL VBG Lactic Acid 1.2 (0.5-2.0) mmol/L POC Sodium 142 (133-145) mEq/L Sodium 139 (133-145) mmol/L POC Potassium 4.1 (3.3-5.1) mEql/L Potassium 4.1 (3.3-5.1) mmol/L POC Chloride 106 (96-108) mEq/L Chloride 106 (96-108) mmol/L Carbon Dioxide 22 (22-30) mmol/L POC Total CO2 22 (22-30) mmol/L Anion Gap 11.0 (8.0-16.0) POC BUN 21 H (6-20) mg/dL BUN 19 (8-23) mg/dL Creatinine 1.4 H (0.6-1.1) mg/dL POC Creatinine 1.4 H (0.6-1.2) mg/dL GFR Calculation 38 Glucose 114 H (70-105) mg/dL POC Glucose 106 H (70-105) mg/dL Calcium 8.6 (8.6-10.4) mg/dL POC WB Ioniz Calcium 1.15 L (1.16-1.32) mmEq/L Total Bilirubin 0.4 (0.1-1.0) mg/dL AST 17 (<32) U/L ALT 9 (<40) U/L Alkaline Phosphatase 53 (39-117) U/L Troponin T (<0.03) ng/mL Total Protein 6.0 (5.9-8.4) gm/dL Albumin 3.5 (3.2-5.2) gm/dL Globulin 2.5 (2.2-3.7) gm/dL Albumin/Globulin Ratio 1.4 (1.0-2.3) Lipase 33 (7-60) U/L Procalcitonin (<0.10) ng/mL Urine Color Urine Appearance (Clear) Urine pH (5.0-9.0) Ur Specific [place] (1.000-1.035) Urine Protein (Negative) mg/dL Urine Glucose (UA) (Negative) mg/dL Urine Ketones (Negative) mg/dL Urine Occult Blood (Negative) mg/dL Urine Nitrate (Negative) Urine Bilirubin (Negative) mg/dL Urine Urobilinogen mg/dL Ur Leukocyte Esterase (Negative) /ug Ur Culture Indicated? 04/06/20 04/06/20 04/06/20 Range/Units 21:27 21:58 21:58 WBC (4.5-11.0) K/mcL RBC (4.00-5.20) M/mcL Hgb (12.0-15.0) g/dL Hct (36.0-48.0) % POC Hct (36-48) % MCV (80.0-100.0) fL MCH (26.0-34.0) pg MCHC (31.0-36.0) g/dL RDW (11.5-14.5) % Plt Count (140-440) K/mcL MPV (7.4-10.4) fL Neut % (Auto) (38.0-78.0) % Lymph % (Auto) (15.0-49.0) % [place] % (Auto) (1.0-12.0) % Eos % (Auto) (0.0-7.0) % Baso % (Auto) (0.0-2.0) % Lymph # (Auto) (1.50-4.80) K/mcL [place] # (Auto) (0.10-0.90) K/mcL Eos # (Auto) (0.00-0.70) K/mcL Baso # (Auto) (0.00-0.20) K/mcL Absolute Neutrophils (1.80-8.00) K/mcL VBG Lactic Acid (0.5-2.0) mmol/L POC Sodium (133-145) mEq/L Sodium (133-145) mmol/L POC Potassium (3.3-5.1) mEql/L Potassium (3.3-5.1) mmol/L POC Chloride (96-108) mEq/L Chloride (96-108) mmol/L Carbon Dioxide (22-30) mmol/L POC Total CO2 (22-30) mmol/L Anion Gap (8.0-16.0) POC BUN (6-20) mg/dL BUN (8-23) mg/dL Creatinine (0.6-1.1) mg/dL POC Creatinine (0.6-1.2) mg/dL GFR Calculation Glucose (70-105) mg/dL POC Glucose (70-105) mg/dL Calcium (8.6-10.4) mg/dL POC WB Ioniz Calcium (1.16-1.32) mmEq/L Total Bilirubin (0.1-1.0) mg/dL AST (<32) U/L ALT (<40) U/L Alkaline Phosphatase (39-117) U/L Troponin T < 0.01 (<0.03) ng/mL Total Protein (5.9-8.4) gm/dL Albumin (3.2-5.2) gm/dL Globulin (2.2-3.7) gm/dL Albumin/Globulin Ratio (1.0-2.3) Lipase (7-60) U/L Procalcitonin 0.07 (<0.10) ng/mL Urine Color Yellow Urine Appearance Hazy A (Clear) Urine pH 5.0 (5.0-9.0) Ur Specific [place] 1.015 (1.000-1.035) Urine Protein Negative (Negative) mg/dL Urine Glucose (UA) Negative (Negative) mg/dL Urine Ketones Negative (Negative) mg/dL Urine Occult Blood Negative (Negative) mg/dL Urine Nitrate Negative (Negative) Urine Bilirubin Negative (Negative) mg/dL Urine Urobilinogen Negative mg/dL Ur Leukocyte Esterase Negative (Negative) /ug Ur Culture Indicated? No Radiology Data Radiology results reviewed: Yes I reviewed the patient's radiology results. Discharge Plan Patient/Caregiver Discharge Instructions Pt seen by FINANCIAL ASSISTANCE SPECIALIST/PA only: No Clinical Impression: Acute dehydration, Chronic respiratory failure with hypoxia, Acute kidney injury Segmental colitis Qualifiers: Digestive disease complication type: without complication Qualified Code(s): K50.10 - Crohn's disease of large intestine without complications Patient Disposition: Xfer As Inpt ([facility]) Condition: Serious Follow up with: Lance Blake MD [Primary Care Provider] - Prescriptions: No Action lamotrigine [Lamictal] 25 mg tablet See Rx Instructions .ROUTE .COMPLEX Qty: 30 RF: 0 furosemide 20 mg tablet 20 mg PO QDAY RF: 0 spironolactone 25 mg tablet 25 mg PO QDAY RF: 0 rosuvastatin 5 mg tablet 5 mg PO QDAY RF: 0 nitroglycerin 0.4 mg tablet, sublingual 0.4 mg SUBLINGUAL Q5M PRNRF: 0 nicotine (polacrilex) 4 mg gum 4 mg BUCCAL Q4H PRN (Reason: nicotine cravings) Qty: 40 RF: 0 (DME) Nocturnal oxygen increase Qty: 1 RF: 0 Spiriva Respimat 2.5 mcg/actuation mist 2 puff INHALATION QDAY Qty: 4 RF: 6 aspirin [Adult Aspirin Regimen] 81 mg tablet,delayed release (DR/EC) 81 mg PO QDAY RF: 0 citalopram 40 mg tablet 40 mg PO QDAY RF: 0 cetirizine [Aller-Catrina] 10 mg tablet 10 mg PO QDAY PRNRF: 0 multivitamin tablet 1 tab PO QAM RF: 0 fluticasone propionate 50 mcg/actuation spray,suspension 1 spray INTRANASAL QDAY RF: 0 nicotine 21 mg/24 hr patch 24 hour 1 patch TRANSDERMA Q24H RF: 0 ezetimibe [Zetia] 10 mg tablet 10 mg PO QDAY RF: 0 albuterol sulfate 2.5 mg/0.5 mL solution for nebulization 2.5 mg INHALATION .q4 RF: 0 lisinopril 2.5 mg tablet 2.5 mg PO QDAY RF: 0 (DME) Incentive Spirometer Qty: 1 RF: 0 ipratropium-albuterol 0.5 mg-3 mg(2.5 mg base)/3 mL solution for nebulization 3 ml INHALATION QID PRN (Reason: shortness of breath or wheezing) Qty: 180 RF: 6 triamterene-hydrochlorothiazid [Dyazide] 37.5-25 mg capsule 1 cap PO QAM PRNRF: 0 Symbicort 160-4.5 mcg/actuation HFA aerosol inhaler 2 puff INHALATION BID Qty: 10.2 RF: 11 prednisone 20 mg tablet 20 mg PO QDAY Qty: 5 RF: 0 albuterol sulfate 1 PUFF inhaler 2 puff INH Q4-6HP PRN (Reason: Shortness Of Breath) RF: 0 omeprazole 20 mg capsule,delayed release(DR/EC) 40 mg PO QDAY RF: 0
[2020-04-06] MEDS ORDERED: LACTATED RINGERS 1,000 ML IV SCH (23:45)
[2020-04-07] MEDS ORDERED: 0.9 % SODIUM CHLORIDE 1,000 ML IV ONE (01:20)
[2020-04-07] MEDS ORDERED: metroNIDAZOLE 500 MG/100 ML BAG IV SCH ×2 (03:30→14:00)
[2020-04-07] MEDS ORDERED: CIPROFLOXACIN 400 MG/200 ML BAG IV SCH (03:30)
[2020-04-07] MEDS ORDERED: ONDANSETRON 4 MG/2 ML VIAL IV PRN ×4 (03:47→10:45)
[2020-04-07] MEDS ORDERED: IPRATROPIUM/ALBUTEROL 3 ML AMPUL.NEB NEB PRN ×3 (03:47→13:44)
[2020-04-07] MEDS ORDERED: morphine 2 MG/ML VIAL IV PRN ×2 (03:47→08:03)
[2020-04-07] MEDS ORDERED: ACETAMINOPHEN 325 MG TABLET PO PRN ×4 (03:47→10:45)
[2020-04-07] MEDS ORDERED: NALOXONE HCL 0.4 MG/ML VIAL IV PRN ×2 (03:47→10:45)
[2020-04-07] MEDS ORDERED: 0.9 % SODIUM CHLORIDE 1,000 ML IV SCH (04:00)
[2020-04-07] MEDS ORDERED: MAGNESIUM SULFATE 2 GM/50 ML BAG IV PRN ×2 (07:58→10:45)
[2020-04-07] MEDS ORDERED: BISACODYL 10 MG SUPP.RECT PR PRN ×2 (07:58→10:45)
[2020-04-07] MEDS ORDERED: ACETAMINOPHEN 650 MG/65 ML BOTTLE IV PRN ×2 (07:58→10:45)
[2020-04-07] MEDS ORDERED: ONDANSETRON 4 MG ODT TABLET SL PRN ×2 (07:58→10:45)
[2020-04-07] MEDS ORDERED: POTASSIUM CHLORIDE 40 MEQ in DEXTROSE 5% IN WATER 500 ML IV PRN ×2 (07:58→10:45)
[2020-04-07] MEDS ORDERED: POTASSIUM CHLORIDE 20 MEQ PACKET PO PRN ×2 (07:58→10:45)
--- NOTE | 2020-04-07 08:02 | Cat Scan Report ---
History: Severe lower abdominal pain and possible constipation. TECHNIQUE: The patient was imaged following injection of intravenous nonionic contrast scanning during the portal venous phase from the diaphragm through the symphysis pubis. Sagittal and coronal reformats were created. Radiation exposure was limited using dose reduction technology. FINDINGS: There are several thick bands of scar atelectasis in both lung bases. No pleural effusion is present. There is a moderate size hiatus hernia. Calcified plaques are present in the coronary arteries. The overall heart size is within normal limits. The liver and spleen are normal in size and homogeneous. There is focal thickening of the gallbladder wall at the tip of the fundus. This measures 5 mm. This may be from chronic inflammation, polyp and less likely an early neoplasm. There are no gallstones and gallbladder wall is otherwise normal. The intra and extrahepatic bile ducts are normal in caliber. The pancreas is normal in size. There is some fatty infiltration in the head. The duct is nondilated. The adrenals are normal symmetric. An 8 mm cortical cyst is present posteriorly in the lower portion right kidney. The kidneys are otherwise normal without evidence of a mass, calculus or hydronephrosis. There is a moderate-sized infrarenal abdominal aorta aneurysm. It measures 4.0 x 4.3 cm in diameter. There is a moderate amount of plaque at the origin of the celiac and a large amount calcified plaque at origin of superior mesenteric arteries. This may be causing hemodynamically significant stenosis of the superior mesenteric artery. Distal to the plaque there is blood flow in both the celiac and superior mesenteric arteries, without apparent thrombosis. Calcified plaques are also present in the common, internal and external iliac arteries, which are normal in caliber. Stomach and small bowel are normal. The appendix is noninflamed. The proximal colon is normal. Beginning at the splenic flexure there is circumferential thickening of the wall of the descending colon down to the proximal sigmoid. There are no diverticula in this region but there is stranding of the adjacent fat. There are multiple noninflamed diverticula in the sigmoid colon but without evidence of acute diverticulitis. Uterus and ovaries are anteverted and atrophic. The urinary bladder is decompressed by Leach catheter. There is a moderate-sized fat-containing left inguinal hernia. There is no adenopathy or free fluid are present in the abdomen or pelvis. Patient has degenerative disc disease and arthritis in the lumbar spine. There may be a herniated disc at L3-4 annular bulges at L4-5 and L5-S1. IMPRESSION: Inflammation of the wall of the descending colon which could be due to an infectious colitis or ischemic colitis. This is not causing bowel obstruction and there is no fecal impaction. Diverticulosis of the sigmoid colon 4.0 x 4.3 cm abdominal aortic aneurysm Hiatus hernia and left inguinal hernia Focal thickening of the gallbladder wall in the fundus, which is a nonspecific finding. Disc protrusions at multiple levels causing spinal canal stenosis Interpreted and Authenticated by: Fernando Latham 04/07/20
[2020-04-07] MEDS ORDERED: HYDROmorphone 0.5 MG/0.5 ML SYRINGE IV PRN (08:05)
--- NOTE | 2020-04-07 08:20 | Internal Med History&Physical ---
HPI History of Present Illness Patient information: Note initiated : 04/07/20 at 8:09 am Service Date, if different from initiated Date: [] Patient: Brii Leung a 70 y/o F admitted on 04/07/20 for suspects constipation. Chief Complaint: History of present illness: Ms. Leung is a 70 year old F with a history of HTN/COPD/HLD/tobacco dependence who presents to the ER with sudden onset worsening abdominal pain that started a few hours prior to presentation. Pain is described as cramping 6 out of 10-10 out of 10 associated with nausea along with diarrhea. She denies associated fever. She has had intermittent bouts of similar symptoms over the last few months but have not sought medical attention. This episode is the most severe. Initial work-up in the ER was consistent with descending colon inflammation likely ischemic versus infectious colitis. C. difficile was negative. White count 20.6, lactic acid 1.2, creatinine 1.4 with a baseline 0.7, procalcitonin 0.07. Patient was started on Cipro Flagyl after discussion with surgery along with oral budesonide. Subsequently hospitalist service was consulted for admission. At the time of my evaluation patient is in moderate discomfort. Endorses a 6 out of 10 pain. She has been on morphine which has not provided adequate relief. She denies bloody stool, bloody urine, recurrent UTI or family history of inflammatory bowel disease. She further denies skin rash/joint pain or re cent medication changes or antibiotic exposure. Review of systems 10 point review system was performed and is negative except for ones discussed above PFSH PFSH All Active Problems Acute dehydration (Acute) Acute kidney injury (Acute) Segmental colitis (Acute) Hypoxemia (Acute) 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) Generalized anxiety disorder (Acute) Tobacco use disorder (Acute) H/O coronary angiogram (Chronic ~02/10/20) H/O cardiac catheterization (Chronic ~02/10/20) O2 dependent (Chronic) CAD (coronary artery disease), [place] coronary artery (Chronic) Esophageal stricture (Chronic) Stress hyperglycemia (Chronic) Elevated glycohemoglobin (Chronic) Nicotine dependence (Chronic) Major depressive disorder (Chronic) Acute myocardial infarction (Chronic) Left supraspinatus tendinitis (Chronic) Osteoarthritis of multiple joints (Chronic) Edema (Chronic) GERD (gastroesophageal reflux disease) (Chronic) Loss of teeth due to extraction (Chronic) COLD (chronic obstructive lung disease) (Chronic) Acute exacerbation of chronic bronchitis (Chronic) Anxiety disorder (Chronic) Recurrent major depression (Chronic) Overweight (Chronic) Vitamin D deficiency (Chronic) Acute exacerbation of chronic obstructive airways disease (Chronic) Tobacco use disorder, severe, dependence (Chronic) Anxiety (Chronic) Influenza A (Chronic) Chronic respiratory failure with hypoxia (Chronic) Influenza (Chronic) Acute exacerbation of chronic obstructive airways disease (Chronic) Medical History Acute exacerbation of chronic bronchitis (Chronic) Acute exacerbation of chronic obstructive airways disease (Chronic) Acute myocardial infarction (Chronic) Anxiety (Chronic) Anxiety disorder (Chronic) CAD (coronary artery disease), [place] coronary artery (Chronic) Chronic respiratory failure with hypoxia (Chronic) COLD (chronic obstructive lung disease) (Chronic) Edema (Chronic) Elevated glycohemoglobin (Chronic) Esophageal stricture (Chronic) GERD (gastroesophageal reflux disease) (Chronic) H/O coronary angiogram (Chronic ~02/10/20) With graft revisualization and left ventriculography Hypoxemia (Acute) Influenza (Chronic) Influenza A (Chronic) Left supraspinatus tendinitis (Chronic) Loss of teeth due to extraction (Chronic) Major depressive disorder (Chronic) Nicotine dependence (Chronic) O2 dependent (Chronic) 2.5 L continuously Osteoarthritis of multiple joints (Chronic) Overweight (Chronic) Recurrent major depression (Chronic) Stress hyperglycemia (Chronic) Tobacco use disorder, severe, dependence (Chronic) Vitamin D deficiency (Chronic) Surgical History H/O cardiac catheterization (Chronic ~02/10/20) History of esophagogastroduodenoscopy (EGD) (Chronic) History of eye surgery (Chronic) History of tonsillectomy (Chronic) History of tubal ligation (Chronic) Hx of CABG (Chronic) Family History Mother Cardiac arrhythmia Daughter Migraine Social History education level: college occupational status: unemployed smoking status: Former smoker quit date: 10/02/18 pack-years: 40 alcohol intake frequency: holiday/special occasion only substance use type: does not use seatbelt use: always working smoke detector in home: Yes firearms in home: No MEDS/ALLERGIES Home Medications and Allergies Home Medications Medication Instructions Recorded Confirmed Type albuterol sulfate 2 puff INH Q4-6HP PRN 05/23/15 03/19/20 History Incentive Spirometer #1 ea 10/19/18 03/19/20 Rx Nocturnal oxygen increase #1 ea 11/02/18 03/19/20 Rx aspirin 81 mg tablet,delayed 81 mg PO QDAY 02/09/19 03/19/20 History release cetirizine 10 mg tablet 10 mg PO QDAY PRN tab 02/09/19 03/19/20 History citalopram 40 mg tablet 40 mg PO QDAY tab 02/09/19 03/19/20 History multivitamin 1 tab PO QAM 02/09/19 03/19/20 History omeprazole 20 mg capsule,delayed 40 mg PO QDAY cap 02/09/19 03/19/20 History release fluticasone propionate 50 1 spray INTRANASAL QDAY 05/09/19 03/19/20 History mcg/actuation nasal spray,suspension ipratropium 0.5 mg-albuterol 3 mg 3 ml INHALATION QID PRN #180 ml 08/07/19 03/19/20 Rx (2.5 mg base)/3 mL nebulization soln budesonide-formoterol HFA 160 2 puff INHALATION BID #10.2 g 12/26/19 03/19/20 Rx mcg-4.5 mcg/actuation aerosol inhaler triamterene 37.5 1 cap PO QAM PRN 12/26/19 03/19/20 History mg-hydrochlorothiazide 25 mg capsule tiotropium bromide 2.5 2 puff INHALATION QDAY #4 g 01/22/20 03/19/20 Rx mcg/actuation mist for inhalation albuterol sulfate 2.5 mg/0.5 mL 2.5 mg INHALATION .q4 each 02/13/20 03/19/20 History solution for nebulization ezetimibe 10 mg tablet 10 mg PO QDAY 02/13/20 03/19/20 History lisinopril 2.5 mg tablet 2.5 mg PO QDAY 02/13/20 03/19/20 History nicotine 21 mg/24 hr daily 1 patch TRANSDERMA Q24H 02/13/20 03/19/20 History transdermal patch furosemide 20 mg tablet 20 mg PO QDAY 02/19/20 03/19/20 History nicotine (polacrilex) 4 mg gum 4 mg BUCCAL Q4H PRN #40 each 02/19/20 03/19/20 Rx nitroglycerin 0.4 mg sublingual 0.4 mg SUBLINGUAL Q5M PRN 02/19/20 03/19/20 History tablet rosuvastatin 5 mg tablet 5 mg PO QDAY 02/19/20 03/19/20 History spironolactone 25 mg tablet 25 mg PO QDAY 02/19/20 03/19/20 History lamotrigine 25 mg tablet See Rx Instructions .ROUTE 03/19/20 03/19/20 Rx .COMPLEX #30 tab prednisone 20 mg tablet 20 mg PO QDAY #5 tab 03/24/20 03/24/20 Rx Allergies Allergy/AdvReac Type Severity Reaction Status Date / Time No Known Drug Allergies Allergy Verified 03/24/20 09:45 EXAM Constitutional Vitals: Temp Pulse Resp BP Pulse Ox 98.6 F 77 18 104/63 98 04/07/20 05:25 04/07/20 03:13 04/07/20 06:00 04/07/20 06:00 04/07/20 06:00 Very distressed due to abdominal discomfort and pain Head normocephalic Oral cavity moist No ear nose discharge Eye movement symmetrical Neck supple no lymphadenopathy S1-S2 regular tachycardia r Nonlabored breathing Tender abdomen to palpation Lower extremity no cyanosis clubbing or joint swelling Skin no suspicious lesion Psych anxious no hallucination Neuro normal higher function DATA Data Completed and Pending Labs: Labs from last 24 hours 04/07/20 04/06/20 04/06/20 00:22 21:58 21:58 WBC RBC Hgb Hct POC Hct MCV MCH MCHC RDW Plt Count MPV Neut % (Auto) Lymph % (Auto) Nelson % (Auto) Eos % (Auto) Baso % (Auto) Lymph # (Auto) Nelson # (Auto) Eos # (Auto) Baso # (Auto) Absolute Neutrophils VBG Lactic Acid POC Sodium Sodium POC Potassium Potassium POC Chloride Chloride Carbon Dioxide POC Total CO2 Anion Gap POC BUN BUN Creatinine POC Creatinine GFR Calculation Glucose POC Glucose Calcium POC WB Ioniz Calcium Total Bilirubin AST ALT Alkaline Phosphatase Troponin T Total Protein Albumin Globulin Albumin/Globulin Ratio Lipase Procalcitonin 0.07 Urine Color Yellow Urine Appearance Hazy A Urine pH 5.0 Ur Specific Stebbins 1.015 Urine Protein Negative Urine Glucose (UA) Negative Urine Ketones Negative Urine Occult Blood Negative Urine Nitrate Negative Urine Bilirubin Negative Urine Urobilinogen Negative Ur Leukocyte Esterase Negative Ur Culture Indicated? No Stool Calprotectin Pending 04/06/20 04/06/20 04/06/20 21:27 21:27 21:27 WBC 20.6 H RBC 3.76 L Hgb 11.0 L Hct 35.6 L POC Hct MCV 94.7 MCH 29.3 MCHC 30.9 L RDW 15.9 H Plt Count 194 MPV 13.0 H Neut % (Auto) 85.7 H Lymph % (Auto) 8.6 L Nelson % (Auto) 4.8 Eos % (Auto) 0.7 Baso % (Auto) 0.2 Lymph # (Auto) 1.76 Nelson # (Auto) 0.98 H Eos # (Auto) 0.14 Baso # (Auto) 0.05 Absolute Neutrophils 17.62 H VBG Lactic Acid 1.2 POC Sodium Sodium POC Potassium Potassium POC Chloride Chloride Carbon Dioxide POC Total CO2 Anion Gap POC BUN BUN Creatinine POC Creatinine GFR Calculation Glucose POC Glucose Calcium POC WB Ioniz Calcium Total Bilirubin AST ALT Alkaline Phosphatase Troponin T < 0.01 Total Protein Albumin Globulin Albumin/Globulin Ratio Lipase Procalcitonin Urine Color Urine Appearance Urine pH Ur Specific Stebbins Urine Protein Urine Glucose (UA) Urine Ketones Urine Occult Blood Urine Nitrate Urine Bilirubin Urine Urobilinogen Ur Leukocyte Esterase Ur Culture Indicated? Stool Calprotectin 04/06/20 21:26 WBC RBC Hgb Hct POC Hct 35 L MCV MCH MCHC RDW Plt Count MPV Neut % (Auto) Lymph % (Auto) Nelson % (Auto) Eos % (Auto) Baso % (Auto) Lymph # (Auto) Nelson # (Auto) Eos # (Auto) Baso # (Auto) Absolute Neutrophils VBG Lactic Acid POC Sodium 142 Sodium 139 POC Potassium 4.1 Potassium 4.1 POC Chloride 106 Chloride 106 Carbon Dioxide 22 POC Total CO2 22 Anion Gap 11.0 POC BUN 21 H BUN 19 Creatinine 1.4 H POC Creatinine 1.4 H GFR Calculation 38 Glucose 114 H POC Glucose 106 H Calcium 8.6 POC WB Ioniz Calcium 1.15 L Total Bilirubin 0.4 AST 17 ALT 9 Alkaline Phosphatase 53 Troponin T Total Protein 6.0 Albumin 3.5 Globulin 2.5 Albumin/Globulin Ratio 1.4 Lipase 33 Procalcitonin Urine Color Urine Appearance Urine pH Ur Specific Stebbins Urine Protein Urine Glucose (UA) Urine Ketones Urine Occult Blood Urine Nitrate Urine Bilirubin Urine Urobilinogen Ur Leukocyte Esterase Ur Culture Indicated? Stool Calprotectin A/P Narrative A/P Narrative: * Severe sepsis with endorgan dysfunction, white count over 20 K, KAYLAN, borderline hypotension. Start management on aggressive crystalloid/antibiotic coverage/cultures. Lactate trending. Monitored bed admission * Colitis on CT possible ischemic versus infectious versus inflammatory bowel. Negative procalcitonin. Await inflammatory markers. Stool studies. C. diff icile negative. Normal lactate suggestive against ischemic gut. Surgery on board. Initiated Cipro Flagyl/budesonide. * Abdominal pain continue management on IV opioids * Acute kidney injury secondary to sepsis endorgan dysfunction. Continue crystalloids and monitor renal function, avoid nephrotoxins * History of COPD continue bronchodilators * Anxiety is noted continue citalopram * Hypertension hold antihypertensives * Tobacco dependence nicotine patch * GERD continue PPI * Hyperlipidemia continue statin * Full code * Prophylaxis heparin Plan * Monitored bed inpatient admission * Sepsis management per guidelines * Monitor renal function * Pre-existing medical condition management on home meds * Clear liquid diet * IBD work-up Time Spent With Patient Time: Total time spent is greater than 50% in coordination of care (as documented) at patient's floor/unit and/or counseling patient: QUALITY Stroke Symptom Onset Unknown: No VTE Deep Vein Thrombosis/Pulmonary Embolism Present on Admission: No
[2020-04-07] MEDS ORDERED: HEPARIN 5,000 UNIT/ML VIAL SQ SCH (09:00)
[2020-04-07] MEDS ORDERED: BUDESONIDE 3 MG CAP.XL.24H PO SCH (09:00)
[2020-04-07] MEDS ORDERED: IOPAMIDOL 100 ML BOTTLE IV ONE (10:45)
[2020-04-07] MEDS ORDERED: LACTATED RINGERS 1,000 ML IV SCH (10:45)
--- NOTE | 2020-04-07 13:44 | Internal Med Progress Note ---
SUBJECTIVE Subjective Patient information: Note initiated : 04/07/20 at 1:37 pm Service Date, if different from initiated Date: [] Patient: Brii Leung a 70 y/o F admitted on 04/07/20 for suspects c onstipation. Chief Complaint: [] Interval history: History of present illness: Ms. Leung is a 70 year old F with a history of HTN/COPD/HLD/tobacco dependence who presents to the ER with sudden onset worsening abdominal pain that started a few hours prior to presentation. Pain is described as cramping 6 out of 10-10 out of 10 associated with nausea along with diarrhea. She denies associated fever. She has had intermittent bouts of similar symptoms over the last few months but have not sought medical attention. This episode is the most severe. Initial work-up in the ER was consistent with descending colon inflammation likely ischemic versus infectious colitis. C. difficile was negative. White count 20.6, lactic acid 1.2, creatinine 1.4 with a baseline 0.7, procalcitonin 0.07. Patient was started on Cipro Flagyl after discussion with surgery along with oral budesonide. Subsequently hospitalist service was consulted for admission. At the time of my evaluation patient is in moderate discomfort. Endorses a 6 out of 10 pain. She has been on morphine which has not provided adequate relief. She denies bloody stool, bloody urine, recurrent UTI or family history of inflammatory bowel disease. She further denies skin rash/joint pain or recent medication changes or antibiotic exposure. 04/08 Constitutional Vitals: Vital Signs Temp Pulse Resp BP Pulse Ox 98.4 F 75 19 102/65 98 04/07/20 12:00 04/07/20 12:00 04/07/20 12:01 04/07/20 12:01 04/07/20 12:01 Period Temp Pulse Resp BP Sys/Queen Pulse Ox Last 24 Hr 94.5 F-99.5 F 66-85 15-27 66-121/33-96 84-100 Intake and Output 04/06/20 04/07/20 04/07/20 21:59 05:59 13:59 Intake Total 3256 200 Output Total 900 500 Balance 2356 -300 Weight 89.811 kg 93.667 kg Intake & Output: Intake & Output 04/06/20 04/07/20 04/07/20 21:59 05:59 13:59 Intake Total 3256 200 Output Total 900 500 Balance 2356 -300 Weight 89.811 kg 93.667 kg Intake: IV 3256 200 Sodium Chloride 0.9% 1,000 ml @ 3007 50 mls/hr IV .Q20H [facility] Rx#: [id number] Lactated Ringers 1,000 ml @ 40 99 mls/hr IV .Q24H [facility] Rx#: [id number] Zosyn 3.375 gm In Dextrose 5% 50 in Water 50 ml @ 100 mls/hr IV ONCE ONE Rx#:[id number] Output: Urine Catheter Amount 900 500 Other: Urine Appearance Cloudy Clear Uretheral (Leach) Clear Clear Clear Urine Color Dark Radha Light Radha Uretheral (Leach) Bright Yellow Bright Yellow Bright Yellow Urine Odor Normal Normal Exam: General: Alert, Awake, No acute Distress Eyes/N/T: EOMI, Head/Neck: neck supple, CV: RRR, No murmurs, Pulm: Clear b/l, no wheezing/rhonchi/rales Abd: soft, , +BS x4 Ext: no clubbing/cyanosis/edema Neuro: Alert, no focal deficits, moves all extremities, Skin: warm/dry OBJ DATA Labs CBC & Chem 7: 04/06/20 21:27 04/06/20 21:26 Labs: Abnormal Lab Results 04/07/20 04/07/20 04/06/20 08:20 08:20 21:58 WBC RBC Hgb Hct POC Hct MCHC RDW MPV Neut % (Auto) Lymph % (Auto) [place] # (Auto) Absolute Neutrophils POC BUN Creatinine POC Creatinine Glucose POC Glucose POC WB Ioniz Calcium C-Reactive Protein 1.70 H Procalcitonin 0.24 H Urine Appearance Hazy A 04/06/20 04/06/20 21:27 21:26 WBC 20.6 H RBC 3.76 L Hgb 11.0 L Hct 35.6 L POC Hct 35 L MCHC 30.9 L RDW 15.9 H MPV 13.0 H Neut % (Auto) 85.7 H Lymph % (Auto) 8.6 L [place] # (Auto) 0.98 H Absolute Neutrophils 17.62 H POC BUN 21 H Creatinine 1.4 H POC Creatinine 1.4 H Glucose 114 H POC Glucose 106 H POC WB Ioniz Calcium 1.15 L C-Reactive Protein Procalcitonin Urine Appearance Meds: Medications Acetaminophen (Tylenol) 650 mg PO Q4-6HP PRN; Protocol PRN Reason: Per Pain Protocol/Fever > 101 Albuterol/Ipratropium (Duoneb) 3 ml NEB Q4HP PRN PRN Reason: Shortness Of Breath Bisacodyl (Dulcolax) 10 mg TX Q2-3DAYS PRN PRN Reason: Constipation Budesonide (Entecort) 9 mg PO DAILY NANCY Heparin Sodium (Porcine) (Heparin) 5,000 unit SQ Q12 NANCY Hydromorphone HCl (Dilaudid) 0.25 mg IV Q2HP PRN; Protocol PRN Reason: Per Pain Protocol Ciprofloxacin (Cipro) 400 mg in 200 mls @ 200 mls/hr IV Q12H NANCY; Protocol Lactated Ringer's (Lactated Ringers) 1,000 mls @ 40 mls/hr IV .Q24H NANCY Potassium Chloride 40 meq/ (Dextrose) 520 mls @ 130 mls/hr IV UD PRN PRN Reason: K+ = or < 3.5 Sodium Chloride (Sodium Chloride 0.9%) 1,000 mls @ 50 mls/hr IV .Q20H NANCY Acetaminophen (Ofirmev) 650 mg in 65 mls @ 130 mls/hr IV Q6HP PRN; Protocol PRN Reason: Per Pain Protocol/Fever > 101 Magnesium Sulfate (Magnesium Sulfate) 2 gm in 50 mls @ 50 mls/hr IV UD PRN PRN Reason: MG = or < 1.7 Metronidazole (Flagyl) 500 mg in 100 mls @ 100 mls/hr IV Q8H NANCY; Protocol Melatonin (Melatonin 3mg Tablet) 3 mg PO HSP PRN PRN Reason: Insomnia Morphine Sulfate (Morphine) 2 mg IV Q2HP PRN; Protocol PRN Reason: Per Pain Protocol Naloxone HCl (Narcan) 0.1 mg IV Q2MIN PRN PRN Reason: Opiate Reversal Ondansetron HCl (Zofran Odt) 4 mg SL Q4-6HP PRN; Protocol PRN Reason: Nausea And Vomiting Ondansetron HCl (Zofran) 4 mg IV Q4-6HP PRN; Protocol PRN Reason: Nausea And Vomiting Potassium Chloride (Klor-Con) 40 meq PO DAILYP PRN PRN Reason: K+ < 3.5 Sodium Chloride (Saline Flush) 10 ml IV Q8 NANCY A/P Narrative A/P Narrative: A: *Severe sepsis: likey GI -borderline hypotension. Start management on aggressive crystalloid/antibiotic coverage/cultures. *Colitis/abd pain: ischemic vs infectious vs inflammatory bowel -negative procalcitonin. c. difficile negative. Lactate ok *KAYLAN: 2/2 sepsis *COPD(): *CAD/cabg: on ASA *Anxiety: continue citalopram *HTN/HLD: *Tobacco dependence: nicotine patch *GERD: continue PPI Plan: -aggressive crystalloid/antibiotic coverage/cultures. Lactate trending. -Gen Surgery on board -cont Cipro Flagyl/budesonide. -Await inflammatory markers. Stool studies. 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
[2020-04-07] MEDS ORDERED: 0.9 % SODIUM CHLORIDE 10 ML SYRINGE IV SCH (14:00)
[2020-04-07] MEDS: 0.9 % SODIUM CHLORIDE 10 ML SYRINGE IV SCH ×2 (14:33→21:23)
[2020-04-07] MEDS: metroNIDAZOLE 500 MG/100 ML BAG IV SCH ×2 (14:33→21:36)
[2020-04-07] MEDS: 0.9 % SODIUM CHLORIDE 1,000 ML IV SCH (14:34)
[2020-04-07] MEDS: morphine 2 MG/ML VIAL IV PRN (14:41)
--- NOTE | 2020-04-07 16:17 | General Surgery Consult Note ---
HPI Data of Consult Patient: new to practice Consult date: 04/07/20 Requesting physician: Bill Gonzalez Primary Care Provider: Lance Blake MD Consult Narrative Chief complaint: acute abdominal pain, diarrhea History of present illness: 70-year-old female had acute onset of abdominal pain on yesterday. She states that she had not had a regular bowel movement for 4 days and her pain became worse. She later had upper large loose bowel movement. She did not have any rectal bleeding. Her pain became progressively worse and she was seen in the emergency room where was noted that she was dehydrated and had evidence of early renal injury. She had CT done which showed thickening of the lining of the bowel starting at the splenic flexure and extending to the rectum compatible with segmental colitis. She had leukocytosis of 20,000, but h er pro-calcitonin and CRP were not significantly elevated. Patient was admitted last evening and started on ciprofloxacin, Flagyl, and budesonide. She has been aggressively hydrated and feels much better today. Her abdominal pain is improved and her leukocytosis has also improved. Her sedimentation rate is now normal. She has not had rectal bleeding today. cc:: CC: Bill Gonzalez Constitutional Constitutional: Present fatigue, malaise and snoring EENT Eyes: Absent blurry vision and change in vision Ears: Absent decreased hearing and tinnitus Nose, mouth and throat: Present abnormal hearing; Absent dysphagia, hoarseness and sore throat Cardiovascular Cardiovascular: Present dyspnea on exertion, irregular heart rhythm and palpatations; Absent chest pain with activity and leg edema Respiratory Respiratory: Present dyspnea; Absent hemoptysis and chest congestion Gastrointestinal Gastrointestinal: Present abdominal pain, change in bowel habits, constipation, cramping, loose stools, nausea and vomiting Genitourinary Genitourinary: Absent urinary frequency, urinary hesitancy and urinary incontinence Musculoskeletal Musculoskeletal: Present muscle cramps; Absent abnormal gait, arthralgias and numbness Integumentary Integumentary: Absent changing lesions, pruritus and rash Neurological Neurological: Present restless legs; Absent abnormal gait, confusion, focal weakness and lack of coordination Psychiatric Psychiatric: Present abnormal sleep pattern, anxiety, change in appetite, irritability and mood swings Endocrine Endocrine: Present palpitations; Absent excessive sweating and heat intolerance Hematologic/Lymphatic Hematologic/Lymphatic: Absent easy bleeding, easy bruising and lymphadenopathy Allergic/Immunologic Allergic/Immunologic: Absent tongue swelling, throat swelling, uticaria, wheezing and lip swelling PFSH PFSH All Active Problems (Updated 04/07/20 @ 16:15 by Geovanna Gill MD) Acute dehydration (Acute) Acute kidney injury (Acute) Segmental colitis (Acute) Hypoxemia (Acute) 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) Generalized anxiety disorder (Acute) Tobacco use disorder (Acute) H/O coronary angiogram (Chronic ~02/10/20) H/O cardiac catheterization (Chronic ~02/10/20) O2 dependent (Chronic) CAD (coronary artery disease), [place] coronary artery (Chronic) Esophageal stricture (Chronic) Stress hyperglycemia (Chronic) Elevated glycohemoglobin (Chronic) Nicotine dependence (Chronic) Major depressive disorder (Chronic) Acute myocardial infarction (Chronic) Left supraspinatus tendinitis (Chronic) Osteoarthritis of multiple joints (Chronic) Edema (Chronic) GERD (gastroesophageal reflux disease) (Chronic) Loss of teeth due to extraction (Chronic) COLD (chronic obstructive lung disease) (Chronic) Acute exacerbation of chronic bronchitis (Chronic) Anxiety disorder (Chronic) Recurrent major depression (Chronic) Overweight (Chronic) Vitamin D deficiency (Chronic) Acute exacerbation of chronic obstructive airways disease (Chronic) Tobacco use disorder, severe, dependence (Chronic) Anxiety (Chronic) Influenza A (Chronic) Chronic respiratory failure with hypoxia (Chronic) Influenza (Chronic) Acute exacerbation of chronic obstructive airways disease (Chronic) Medical History Acute exacerbation of chronic bronchitis (Chronic) Acute exacerbation of chronic obstructive airways disease (Chronic) Acute myocardial infarction (Chronic) Anxiety (Chronic) Anxiety disorder (Chronic) CAD (coronary artery disease), [place] coronary artery (Chronic) Chronic respiratory failure with hypoxia (Chronic) COLD (chronic obstructive lung disease) (Chronic) Edema (Chronic) Elevated glycohemoglobin (Chronic) Esophageal stricture (Chronic) GERD (gastroesophageal reflux disease) (Chronic) H/O coronary angiogram (Chronic ~02/10/20) With graft revisualization and left ventriculography Hypoxemia (Acute) Influenza (Chronic) Influenza A (Chronic) Left supraspinatus tendinitis (Chronic) Loss of teeth due to extraction (Chronic) Major depressive disorder (Chronic) Nicotine dependence (Chronic) O2 dependent (Chronic) 2.5 L continuously Osteoarthritis of multiple joints (Chronic) Overweight (Chronic) Recurrent major depression (Chronic) Stress hyperglycemia (Chronic) Tobacco use disorder, severe, dependence (Chronic) Vitamin D deficiency (Chronic) Surgical History H/O cardiac catheterization (Chronic ~02/10/20) History of esophagogastroduodenoscopy (EGD) (Chronic) History of eye surgery (Chronic) History of tonsillectomy (Chronic) History of tubal ligation (Chronic) Hx of CABG (Chronic) Family History Mother Cardiac arrhythmia Daughter Migraine Social History education level: college occupational status: unemployed smoking status: Former smoker quit date: 10/02/18 pack-years: 40 alcohol intake frequency: holiday/special occasion only substance use type: does not use seatbelt use: always working smoke detector in home: Yes firearms in home: No MEDS/ALLERGIES Home Medications and Allergies Home Medications Medication Instructions Recorded Confirmed Type albuterol sulfate 2 puff INH Q4-6HP PRN 05/23/15 04/07/20 History aspirin 81 mg tablet,delayed 81 mg PO QDAY 02/09/19 04/07/20 History release cetirizine 10 mg tablet 10 mg PO QDAY tab 02/09/19 04/07/20 History citalopram 40 mg tablet 40 mg PO QDAY tab 02/09/19 04/07/20 History multivitamin 1 tab PO QAM 02/09/19 04/07/20 History omeprazole 20 mg capsule,delayed 40 mg PO QDAY cap 02/09/19 04/07/20 History release fluticasone propionate 50 1 spray INTRANASAL QDAY 05/09/19 04/07/20 History mcg/actuation nasal spray,suspension ipratropium 0.5 mg-albuterol 3 mg 3 ml INHALATION QID PRN #180 ml 08/07/19 04/07/20 Rx (2.5 mg base)/3 mL nebulization soln budesonide-formoterol HFA 160 2 puff INHALATION BID #10.2 g 12/26/19 04/07/20 Rx mcg-4.5 mcg/actuation aerosol inhaler triamterene 37.5 1 cap PO QAM 12/26/19 04/07/20 History mg-hydrochlorothiazide 25 mg capsule tiotropium bromide 2.5 2 puff INHALATION QDAY #4 g 01/22/20 04/07/20 Rx mcg/actuation mist for inhalation ezetimibe 10 mg tablet 10 mg PO QDAY 02/13/20 04/07/20 History lisinopril 2.5 mg tablet 2.5 mg PO QDAY 02/13/20 04/07/20 History furosemide 20 mg tablet 20 mg PO QDAY 02/19/20 04/07/20 History nitroglycerin 0.4 mg sublingual 0.4 mg SUBLINGUAL Q5M PRN 02/19/20 04/07/20 History tablet rosuvastatin 5 mg tablet 5 mg PO QDAY 02/19/20 04/07/20 History spironolactone 25 mg tablet 25 mg PO QDAY 02/19/20 04/07/20 History prednisone 20 mg tablet 20 mg PO QDAY #5 tab 03/24/20 04/07/20 Rx lamotrigine [Lamictal] 25 mg PO BID 04/07/20 04/07/20 History Allergies Allergy/AdvReac Type Severity Reaction Status Date / Time No Known Drug Allergies Allergy Verified 03/24/20 09:45 Physical Examination Vital Signs Vital signs: Temp Pulse Resp BP Pulse Ox 98.4 F 75 19 101/55 98 04/07/20 12:00 04/07/20 14:00 04/07/20 14:00 04/07/20 14:00 04/07/20 14:00 General physical appearance General physical exam: well developed, well nourished, moderate distress, moderate pain and obese Eyes Eye exam: PERRL and normal ocular movement ENT ENT exam: normal mucosa, no hearing loss and no congestion Head Head exam IM: Present atraumatic, normal inspection and normocephalic Neck Neck exam: no masses, no bruits, trachea midline and no lymphadenopathy; negative no venous distension Cardiovascular Cardiovascular exam IM: Present normal rate and rhythm, RRR, +S1 and +S2; Absent JVD Respiratory Respiratory exam: normal expansion, normal respiratory effort, clear to percussion and clear to auscultation Abdomen Abdomen: Present tender (mild tenderness in epigastrium and left abdomen with mild guarding; active bowel sounds) Integumentary Integumentary: Present no rash, no growths and no abnormal pigmentation Neurologic Neurologic: Present normal coordination and normal sensation Musculoskeletal Musculoskeletal: Present normal gait and normal posture Psychiatric Psychiatric: Present oriented to time, oriented to person, oriented to place, speech is normal and memory intact Results Labs Result diagrams: 04/06/20 21:27 04/06/20 21:26 Labs: Abnormal lab results 04/06/20 04/06/20 04/06/20 Range/Units 21:26 21:27 21:58 WBC 20.6 H (4.5-11.0) K/mcL RBC 3.76 L (4.00-5.20) M/mcL Hgb 11.0 L (12.0-15.0) g/dL Hct 35.6 L (36.0-48.0) % POC Hct 35 L (36-48) % MCHC 30.9 L (31.0-36.0) g/dL RDW 15.9 H (11.5-14.5) % MPV 13.0 H (7.4-10.4) fL Neut % (Auto) 85.7 H (38.0-78.0) % Lymph % (Auto) 8.6 L (15.0-49.0) % [place] # (Auto) 0.98 H (0.10-0.90) K/mcL Absolute Neutrophils 17.62 H (1.80-8.00) K/mcL POC BUN 21 H (6-20) mg/dL Creatinine 1.4 H (0.6-1.1) mg/dL POC Creatinine 1.4 H (0.6-1.2) mg/dL Glucose 114 H (70-105) mg/dL POC Glucose 106 H (70-105) mg/dL POC WB Ioniz Calcium 1.15 L (1.16-1.32) mmEq/L C-Reactive Protein (0.03-0.80) mg/dL Procalcitonin (<0.10) ng/mL Urine Appearance Hazy A (Clear) 04/07/20 04/07/20 Range/Units 08:20 08:20 WBC (4.5-11.0) K/mcL RBC (4.00-5.20) M/mcL Hgb (12.0-15.0) g/dL Hct (36.0-48.0) % POC Hct (36-48) % MCHC (31.0-36.0) g/dL RDW (11.5-14.5) % MPV (7.4-10.4) fL Neut % (Auto) (38.0-78.0) % Lymph % (Auto) (15.0-49.0) % [place] # (Auto) (0.10-0.90) K/mcL Absolute Neutrophils (1.80-8.00) K/mcL POC BUN (6-20) mg/dL Creatinine (0.6-1.1) mg/dL POC Creatinine (0.6-1.2) mg/dL Glucose (70-105) mg/dL POC Glucose (70-105) mg/dL POC WB Ioniz Calcium (1.16-1.32) mmEq/L C-Reactive Protein 1.70 H (0.03-0.80) mg/dL Procalcitonin 0.24 H (<0.10) ng/mL Urine Appearance (Clear) Diabetes panel 04/06/20 Range/Units 21:26 Sodium 139 (133-145) mmol/L Potassium 4.1 (3.3-5.1) mmol/L Chloride 106 (96-108) mmol/L Carbon Dioxide 22 (22-30) mmol/L BUN 19 (8-23) mg/dL Creatinine 1.4 H (0.6-1.1) mg/dL Glucose 114 H (70-105) mg/dL Calcium 8.6 (8.6-10.4) mg/dL AST 17 (<32) U/L ALT 9 (<40) U/L Alkaline Phosphatase 53 (39-117) U/L Total Protein 6.0 (5.9-8.4) gm/dL Albumin 3.5 (3.2-5.2) gm/dL Calcium panel 04/06/20 Range/Units 21:26 Calcium 8.6 (8.6-10.4) mg/dL Albumin 3.5 (3.2-5.2) gm/dL Pituitary panel 04/06/20 Range/Units 21:26 Sodium 139 (133-145) mmol/L Potassium 4.1 (3.3-5.1) mmol/L Chloride 106 (96-108) mmol/L Carbon Dioxide 22 (22-30) mmol/L BUN 19 (8-23) mg/dL Creatinine 1.4 H (0.6-1.1) mg/dL Glucose 114 H (70-105) mg/dL Calcium 8.6 (8.6-10.4) mg/dL Adrenal panel 04/06/20 Range/Units 21:26 Sodium 139 (133-145) mmol/L Potassium 4.1 (3.3-5.1) mmol/L Chloride 106 (96-108) mmol/L Carbon Dioxide 22 (22-30) mmol/L BUN 19 (8-23) mg/dL Creatinine 1.4 H (0.6-1.1) mg/dL Glucose 114 H (70-105) mg/dL Calcium 8.6 (8.6-10.4) mg/dL Total Bilirubin 0.4 (0.1-1.0) mg/dL AST 17 (<32) U/L ALT 9 (<40) U/L Alkaline Phosphatase 53 (39-117) U/L Total Protein 6.0 (5.9-8.4) gm/dL Albumin 3.5 (3.2-5.2) gm/dL All other labs normal. A/P Assessment and plan (1) Segmental colitis: Status: Acute Qualifiers: Digestive disease complication type: without complication Qualified Code(s): K50.10 - Crohn's disease of large intestine without complications (2) Acute dehydration: Status: Acute (3) Acute kidney injury: Status: Acute (4) COPD (chronic obstructive pulmonary disease) with emphysema: Status: Acute Qualifiers: Emphysema type: unspecified Qualified Code(s): J43.9 - Emphysema, uns pecified (5) Generalized anxiety disorder: Status: Acute (6) Tobacco use disorder: Status: Acute (7) CAD (coronary artery disease), [place] coronary artery: Status: Chronic Qualifiers: [place] vs. transplanted heart: [place] heart Associated angina: angina presence unspecified Qualified Code(s): I25.10 - Atherosclerotic heart disease of [place] coronary artery without angina pectoris (8) Nicotine dependence: Status: Chronic Qualifiers: Nicotine product type: cigarettes Substance use status: unspecified nicotine-induced disorder Qualified Code(s): F17.219 - Nicotine dependence, cigarettes, with unspecified nicotine-induced disorders (9) Major depressive disorder: Status: Chronic Qualifiers: Major depression recurrence: recurrent Active/Remission status: currently active Major depression episode severity: moderate Qualified Code(s): F33.1 - Major depressive disorder, recurrent, moderate Narrative A/P Narrative: patient has clinical evidence of acute segmental ischemic coli tis. She has improved significantly over the past 12 hours and her leukocytosis significantly improved. She will be continued on vigorous hydration and present antibiotic regimen. As long as she improves, she will not need to have colonoscopy. She had colonoscopy about 3 years ago with findings of a few polyps that were removed. Patient should be monitored as an inpatient for the next 2-3 days and if she remains stable she can be discharged on oral medication and followed as an outpatient. Unless she has an acute exacerbation She should not need to have endoscopic evaluation. Time Spent With Patient Time: Total time spent is greater than 50% in coordination of care (as documented) at patient's floor/unit and/or counseling patient:
[2020-04-07] MEDS ORDERED: NICOTINE 21 MG PATCH TOPICAL ONE (17:16)
[2020-04-07] MEDS: HYDROmorphone 0.5 MG/0.5 ML SYRINGE IV PRN (17:33)
[2020-04-07] MEDS: CIPROFLOXACIN 400 MG/200 ML BAG IV SCH (18:33)
[2020-04-07] MEDS ORDERED: MELATONIN 3 MG TABLET PO PRN ×2 (21:00)
[2020-04-07] MEDS: HEPARIN 5,000 UNIT/ML VIAL SQ SCH (21:19)
[2020-04-07] MEDS: lamoTRIgine 25 MG TABLET PO SCH (21:20)
[2020-04-07] MEDS: BUDESONIDE FORMOTEROL INH SCH (21:21)
[2020-04-08] MEDS: morphine 2 MG/ML VIAL IV PRN ×4 (00:43→17:40)
[2020-04-08] MEDS: 0.9 % SODIUM CHLORIDE 1,000 ML IV SCH (04:59)
[2020-04-08] MEDS: 0.9 % SODIUM CHLORIDE 10 ML SYRINGE IV SCH ×4 (05:14→21:45)
[2020-04-08] MEDS: metroNIDAZOLE 500 MG/100 ML BAG IV SCH ×3 (05:40→21:55)
[2020-04-08 07:01] LABS: ALT/SGPT 6 U/L (<40); AST/SGOT 13 U/L (<32); Albumin 2.9 gm/dL (3.2-5.2); Albumin/Globulin Ratio 1.4 (1.0-2.3); Alkaline Phosphatase 38 U/L (39-117); Bilirubin,Direct < 0.2 mg/dL (<0.3); Bilirubin,Total 0.2 mg/dL (0.1-1.0); Blood Urea Nitrogen 8 mg/dL (8-23); Calcium 8.4 mg/dL (8.6-10.4); Carbon Dioxide 24 mmol/L (22-30); Chloride 110 mmol/L (96-108); Globulin 2.1 gm/dL (2.2-3.7); Glomerular Filtration Rate 66; Glucose 85 mg/dL (70-105); Lactate Dehydrogenase 146 U/L (135-225); Phosphorous 2.7 mg/dL (2.5-4.5); Triglycerides 73 mg/dL (<150); Uric Acid 3.6 mg/dL (2.5-8.0)
--- NOTE | 2020-04-08 07:13 | Internal Med Progress Note ---
SUBJECTIVE Subjective Patient information: Note initiated : 04/08/20 at 7:09 am Service Date, if different from initiated Date: [] Patient: Brii Leung a 70 y/o F admitted on 04/07/20 for suspects c onstipation. Chief Complaint: [] Interval history: History of present illness: Ms. Leung is a 70 year old F with a history of HTN/COPD/HLD/tobacco dependence who presents to the ER with sudden onset worsening abdominal pain that started a few hours prior to presentation. Pain is described as cramping 6 out of 10-10 out of 10 associated with nausea along with diarrhea. She denies associated fever. She has had intermittent bouts of similar symptoms over the last few months but have not sought medical attention. This episode is the most severe. Initial work-up in the ER was consistent with descending colon inflammation likely ischemic versus infectious colitis. C. difficile was negative. White count 20.6, lactic acid 1.2, creatinine 1.4 with a baseline 0.7, procalcitonin 0.07. Patient was started on Cipro Flagyl after discussion with surgery along with oral budesonide. Subsequently hospitalist service was consulted for admission. At the time of my evaluation patient is in moderate discomfort. Endorses a 6 out of 10 pain. She has been on morphine which has not provided adequate relief. She denies bloody stool, bloody urine, recurrent UTI or family history of inflammatory bowel disease. She further denies skin rash/joint pain or recent medication changes or antibiotic exposure. 11/ Poor sleep but otherwise no new complaints. States a little better overall. Leukocytosis resolved. Left lower quadrant abdominal pain. Review of Systems: denies headache/fever/chills/nausea/vomiting/chest pain/cough/dyspnea/diarrhea. Otherwise see above. Constitutional Vitals: Vital Signs Temp Pulse Resp BP Pulse Ox 97.7 F 67 14 106/51 96 04/08/20 04:01 04/07/20 16:00 04/08/20 06:01 04/08/20 06:01 04/08/20 06:01 Period Temp Pulse Resp BP Sys/Queen Pulse Ox Last 24 Hr 97.3 F-99.0 F 67-75 14-20 94-132/50-71 95-98 Intake and Output 04/07/20 04/08/20 04/08/20 21:59 05:59 13:59 Intake Total 1156 477 Output Total 675 450 Balance 481 27 Weight 94.438 kg Intake & Output: Intake & Output 04/07/20 04/08/20 04/08/20 21:59 05:59 13:59 Intake Total 1156 477 Output Total 675 450 Balance 481 27 Weight 94.438 kg Intake: IV 1036 357 Sodium Chloride 0.9% 1,000 ml @ 736 257 50 mls/hr IV .Q20H [facility] Rx#: [id number] Oral 120 120 Output: Urine Catheter Amount 675 450 Other: Meal Nourishment/Supplement Nourishment/Supplement name 2 jello Urine Appearance Clear Clear Uretheral (Leach) Clear Clear Urine Color Dark Yellow Dark Yellow Uretheral (Leach) Bright Yellow Bright Yellow Urine Odor Normal Normal Exam: General: Alert, Awake, No acute Distress Eyes/N/T: EOMI, Head/Neck: neck supple, CV: RRR, No murmurs, Pulm: Clear b/l, no wheezing/rhonchi/rales Abd: soft, TTP LLQ, +BS x4 but decreased Ext: no clubbing/cyanosis/edema Neuro: Alert, no focal deficits, moves all extremities, Skin: warm/dry OBJ DATA Labs CBC & Chem 7: 04/08/20 05:02 04/08/20 05:02 Labs: Abnormal Lab Results 04/08/20 04/07/20 04/07/20 05:02 08:20 08:20 WBC RBC Hgb Hct POC Hct MCHC RDW MPV Neut % (Auto) Lymph % (Auto) [place] # (Auto) Absolute Neutrophils Chloride 110 H Anion Gap 7.0 L POC BUN Creatinine POC Creatinine Glucose POC Glucose Calcium 8.4 L POC WB Ioniz Calcium Alkaline Phosphatase 38 L C-Reactive Protein 2.80 H 1.70 H Total Protein 5.0 L Albumin 2.9 L Globulin 2.1 L Procalcitonin 0.24 H Urine Appearance 04/06/20 04/06/20 04/06/20 21:58 21:27 21:26 WBC 20.6 H RBC 3.76 L Hgb 11.0 L Hct 35.6 L POC Hct 35 L MCHC 30.9 L RDW 15.9 H MPV 13.0 H Neut % (Auto) 85.7 H Lymph % (Auto) 8.6 L [place] # (Auto) 0.98 H Absolute Neutrophils 17.62 H Chloride Anion Gap POC BUN 21 H Creatinine 1.4 H POC Creatinine 1.4 H Glucose 114 H POC Glucose 106 H Calcium POC WB Ioniz Calcium 1.15 L Alkaline Phosphatase C-Reactive Protein Total Protein Albumin Globulin Procalcitonin Urine Appearance Hazy A Meds: Medications Acetaminophen (Tylenol) 650 mg PO Q4-6HP PRN; Protocol PRN Reason: Per Pain Protocol/Fever > 101 Albuterol/Ipratropium (Duoneb) 3 ml NEB Q4HP PRN PRN Reason: Shortness Of Breath Aspirin (Aspirin) 81 mg PO DAILY NANCY Bisacodyl (Dulcolax) 10 mg [place] Q2-3DAYS PRN PRN Reason: Constipation Budesonide (Entecort) 9 mg PO DAILY [facility] Citalopram Hydrobromide (Celexa) 40 mg PO DAILY [facility] Heparin Sodium (Porcine) (Heparin) 5,000 unit SQ Q12 [facility] Last Admin: 04/07/20 21:19 Dose: 5,000 unit Documented by: Hydromorphone HCl (Dilaudid) 0.25 mg IV Q2HP PRN; Protocol PRN Reason: Per Pain Protocol Last Admin: 04/07/20 17:33 Dose: 0.25 mg Documented by: Ciprofloxacin (Cipro) 400 mg in 200 mls @ 200 mls/hr IV Q12H [facility]; Protocol Last Infusion: 04/07/20 19:35 Dose: Infused Documented by: Potassium Chloride 40 meq/ (Dextrose) 520 mls @ 130 mls/hr IV UD PRN PRN Reason: K+ = or < 3.5 Sodium Chloride (Sodium Chloride 0.9%) 1,000 mls @ 50 mls/hr IV .Q20H [facility] Last Admin: 04/08/20 04:59 Dose: 50 mls/hr Documented by: Acetaminophen (Ofirmev) 650 mg in 65 mls @ 130 mls/hr IV Q6HP PRN; Protocol PRN Reason: Per Pain Protocol/Fever > 101 Magnesium Sulfate (Magnesium Sulfate) 2 gm in 50 mls @ 50 mls/hr IV UD PRN PRN Reason: MG = or < 1.7 Metronidazole (Flagyl) 500 mg in 100 mls @ 100 mls/hr IV Q8H [facility]; Protocol Last Admin: 04/08/20 05:40 Dose: 100 mls/hr Documented by: Iron Carb/Multivit/Typing Teacher/Folic Acid (Multivitamin W/Minerals) 1 tab PO DAILY [facility] Lamotrigine (Lamictal) 25 mg PO BID [facility] Last Admin: 04/07/20 21:20 Dose: Not Given Documented by: Melatonin (Melatonin 3mg Tablet) 3 mg PO HSP PRN PRN Reason: Insomnia Morphine Sulfate (Morphine) 2 mg IV Q2HP PRN; Protocol PRN Reason: Per Pain Protocol Last Admin: 04/08/20 05:10 Dose: 2 mg Documented by: Naloxone HCl (Narcan) 0.1 mg IV Q2MIN PRN PRN Reason: Opiate Reversal Omeprazole (Prilosec) 40 mg PO ACB [facility] Ondansetron HCl (Zofran Odt) 4 mg SL Q4-6HP PRN; Protocol PRN Reason: Nausea And Vomiting Ondansetron HCl (Zofran) 4 mg IV Q4-6HP PRN; Protocol PRN Reason: Nausea And Vomiting Budesonide- Formoterol [ Symbicort] 160 Mcg/4 .5mcg Inhaler 1 dose INH BID [facility] Last Admin: 04/07/20 21:21 Dose: 1 dose Documented by: Tiotropium [place] [ Spiriva Respimat] 2. 5 Mcg/Actuation Inhaler 1 dose INH DAILY [facility] Potassium Chloride (Klor-Con) 40 meq PO DAILYP PRN PRN Reason: K+ < 3.5 Sodium Chloride (Saline Flush) 10 ml IV Q8 [facility] Last Admin: 04/08/20 05:14 Dose: 10 ml Documented by: A/P Narrative A/P Narrative: A: *Sepsis: 2/2 colitis -borderline hypotension. Start management on aggressive crystalloid/antibiotic coverage/cultures. -Leukocytosis resolved *Colitis/abd pain: ischemic vs infectious vs inflammatory bowel -negative procalcitonin. c. difficile negative. Lactate ok *KAYLAN: 2/2 sepsis -resolved *COPD(2.5L @home): *CAD/cabg: on ASA *Anxiety: continue citalopram *HTN/HLD: *Tobacco dependence: nicotine patch *GERD: continue PPI *Obese: Plan: -crystalloid/antibiotic coverage/cultures -Gen Surgery following, on budesonide -cont Cipro/flagyl -IVF's -Clear liquid diet advance as tolerated -hold home BP meds and lasix/aldactone for now for low BP -ppx: Heparin Code: service observer Spent With Patient Time: Total time spent is greater than 50% in coordination of care (as documented) at patient's floor/unit and/or counseling patient: QUALITY Stroke Symptom Onset Unknown: No VTE Deep Vein Thrombosis/Pulmonary Embolism Present on Admission: No
[2020-04-08] MEDS ORDERED: MELATONIN 3 MG TABLET PO SCH (07:16)
[2020-04-08] MEDS: OMEPRAZOLE 20 MG CAPSULE PO SCH (07:32)
[2020-04-08] MEDS: HYDROmorphone 0.5 MG/0.5 ML SYRINGE IV PRN (07:33)
[2020-04-08 07:34] LABS: Anisocytosis 1+ (None Seen); Hematocrit 30.7 % (36.0-48.0); Hemoglobin 9.2 g/dL (12.0-15.0); Lymphocytes % 23 % (15-49); Mean Cell Volume 96.2 fL (80.0-100.0); Mean Platelet Volume 12.6 fL (7.4-10.4); Monocytes % (Manual) 7 % (1-12); Platelet Count 156 K/mcL (140-440); Platelet Estimate NORMAL (Normal); RBC 3.19 M/mcL (4.00-5.20); RBC Morphology ABNORMAL (Normal); Red Cell Distribution Width 15.7 % (11.5-14.5); Segmented Neutrophils % 70 % (38-78); WBC 8.3 K/mcL (4.5-11.0)
[2020-04-08] MEDS ORDERED: FLU VACC QS2020-21(6MOS UP)/PF 60 MCG/0.5 ML SYRINGE IM ONE (10:00)
[2020-04-08] MEDS: BUDESONIDE FORMOTEROL INH SCH ×2 (10:17→20:34)
[2020-04-08] MEDS: CIPROFLOXACIN 400 MG/200 ML BAG IV SCH ×2 (10:18→20:32)
[2020-04-08] MEDS: TIOTROPIUM BROMIDE INH SCH (10:18)
[2020-04-08] MEDS: MULTIVIT,THER IRON,CA,FA & MIN 1 TABLET PO SCH (10:19)
[2020-04-08] MEDS: ASPIRIN 81 MG TAB.CHEW PO SCH (10:19)
[2020-04-08] MEDS: BUDESONIDE 3 MG CAP.XL.24H PO SCH (10:19)
[2020-04-08] MEDS: HEPARIN 5,000 UNIT/ML VIAL SQ SCH ×2 (10:19→20:33)
[2020-04-08] MEDS: CITALOPRAM 20 MG TABLET PO SCH (10:19)
[2020-04-08] MEDS: lamoTRIgine 25 MG TABLET PO SCH ×2 (10:20→20:34)
[2020-04-08] MEDS: NICOTINE 14 MG PATCH TOPICAL SCH (20:52)
[2020-04-09] MEDS: 0.9 % SODIUM CHLORIDE 10 ML SYRINGE IV SCH ×4 (04:12→20:16)
[2020-04-09] MEDS: morphine 2 MG/ML VIAL IV PRN (04:13)
[2020-04-09] MEDS: metroNIDAZOLE 500 MG/100 ML BAG IV SCH (05:31)
--- NOTE | 2020-04-09 07:20 | Internal Med Progress Note ---
SUBJECTIVE Subjective Patient information: Note initiated : 04/09/20 at 7:17 am Service Date, if different from initiated Date: [] Patient: Brii Leung a 70 y/o F admitted on 04/07/20 for suspects c onstipation. Chief Complaint: [] Interval history: History of present illness: Ms. Leung is a 70 year old F with a history of HTN/COPD/HLD/tobacco dependence who presents to the ER with sudden onset worsening abdominal pain that started a few hours prior to presentation. Pain is described as cramping 6 out of 10-10 out of 10 associated with nausea along with diarrhea. She denies associated fever. She has had intermittent bouts of similar symptoms over the last few months but have not sought medical attention. This episode is the most severe. Initial work-up in the ER was consistent with descending colon inflammation likely ischemic versus infectious colitis. C. difficile was negative. White count 20.6, lactic acid 1.2, creatinine 1.4 with a baseline 0.7, procalcitonin 0.07. Patient was started on Cipro Flagyl after discussion with surgery along with oral budesonide. Subsequently hospitalist service was consulted for admission. At the time of my evaluation patient is in moderate discomfort. Endorses a 6 out of 10 pain. She has been on morphine which has not provided adequate relief. She denies bloody stool, bloody urine, recurrent UTI or family history of inflammatory bowel disease. She further denies skin rash/joint pain or recent medication changes or antibiotic exposure. 11/3 Poor sleep but otherwise no new complaints. States a little better overall. Leukocytosis resolved. Left lower quadrant abdominal pain. 11/4 Some diarrhea overnight. Has some abdominal discomfort. Otherwise no new complaints. Review of Systems: denies headache/fever/chills/nausea/vomiting/chest pain/cough/dyspnea. Otherwise see above. Constitutional Vitals: Vital Signs Temp Pulse Resp BP Pulse Ox 97.5 F 67 17 119/56 96 04/09/20 04:01 04/07/20 16:00 04/09/20 06:01 04/09/20 06:01 04/09/20 06:01 Period Temp Pulse Resp BP Sys/Queen Pulse Ox Last 24 Hr 97.1 F-98.7 F 14-30 95-135/51-80 90-98 Intake and Output 04/08/20 04/09/20 04/09/20 21:59 05:59 13:59 Intake Total 936 95 100 Output Total 425 650 Balance 511 -555 100 Weight 95.283 kg Intake & Output: Intake & Output 04/08/20 04/09/20 04/09/20 21:59 05:59 13:59 Intake Total 936 95 100 Output Total 425 650 Balance 511 -555 100 Weight 95.283 kg Intake: IV 936 95 100 Sodium Chloride 0.9% 1,000 ml @ 636 50 mls/hr IV .Q20H [facility] Rx#: [id number] Output: Urine Catheter Amount 425 650 Other: Urine Appearance Clear Clear Uretheral (Leach) Clear Clear Urine Color Dark Yellow Dark Yellow Uretheral (Leach) Dark Yellow Bright Yellow Urine Odor Normal Normal Exam: General: Alert, Awake, No acute Distress Eyes/N/T: EOMI, Head/Neck: neck supple, CV: RRR, No murmurs, Pulm: Clear b/l, no wheezing/rhonchi/rales Abd: soft, TTP LLQ, +BS x4 Ext: no clubbing/cyanosis/edema Neuro: Alert, no focal deficits, moves all extremities, Skin: warm/dry OBJ DATA Labs CBC & Chem 7: 04/08/20 05:02 04/09/20 04:44 Labs: Abnormal Lab Results 04/08/20 04/08/20 04/07/20 05:02 05:02 08:20 WBC RBC 3.19 L Hgb 9.2 L Hct 30.7 L POC Hct MCHC 30.0 L RDW 15.7 H MPV 12.6 H Neut % (Auto) Lymph % (Auto) [place] # (Auto) Absolute Neutrophils RBC Morphology Abnormal A Anisocytosis 1+ A Chloride 110 H Anion Gap 7.0 L POC BUN Creatinine POC Creatinine Glucose POC Glucose Calcium 8.4 L POC WB Ioniz Calcium Alkaline Phosphatase 38 L C-Reactive Protein 2.80 H Total Protein 5.0 L Albumin 2.9 L Globulin 2.1 L Procalcitonin 0.24 H Urine Appearance 04/07/20 04/06/20 04/06/20 08:20 21:58 21:27 WBC 20.6 H RBC 3.76 L Hgb 11.0 L Hct 35.6 L POC Hct MCHC 30.9 L RDW 15.9 H MPV 13.0 H Neut % (Auto) 85.7 H Lymph % (Auto) 8.6 L [place] # (Auto) 0.98 H Absolute Neutrophils 17.62 H RBC Morphology Anisocytosis Chloride Anion Gap POC BUN Creatinine POC Creatinine Glucose POC Glucose Calcium POC WB Ioniz Calcium Alkaline Phosphatase C-Reactive Protein 1.70 H Total Protein Albumin Globulin Procalcitonin Urine Appearance Hazy A 04/06/20 21:26 WBC RBC Hgb Hct POC Hct 35 L MCHC RDW MPV Neut % (Auto) Lymph % (Auto) [place] # (Auto) Absolute Neutrophils RBC Morphology Anisocytosis Chloride Anion Gap POC BUN 21 H Creatinine 1.4 H POC Creatinine 1.4 H Glucose 114 H POC Glucose 106 H Calcium POC WB Ioniz Calcium 1.15 L Alkaline Phosphatase C-Reactive Protein Total Protein Albumin Globulin Procalcitonin Urine Appearance Meds: Medications Acetaminophen (Tylenol) 650 mg PO Q4-6HP PRN; Protocol PRN Reason: Per Pain Protocol/Fever > 101 Albuterol/Ipratropium (Duoneb) 3 ml NEB Q4HP PRN PRN Reason: Shortness Of Breath Aspirin (Aspirin) 81 mg PO DAILY [facility] Last Admin: 04/08/20 10:19 Dose: 81 mg Documented by: Bisacodyl (Dulcolax) 10 mg MA Q2-3DAYS PRN PRN Reason: Constipation Budesonide (Entecort) 9 mg PO DAILY [facility] Last Admin: 04/08/20 10:19 Dose: 9 mg Documented by: Citalopram Hydrobromide (Celexa) 40 mg PO DAILY [facility] Last Admin: 04/08/20 10:19 Dose: 40 mg Documented by: Heparin Sodium (Porcine) (Heparin) 5,000 unit SQ Q12 [facility] Last Admin: 04/08/20 20:33 Dose: 5,000 unit Documented by: Hydromorphone HCl (Dilaudid) 0.25 mg IV Q2HP PRN; Protocol PRN Reason: Per Pain Protocol Last Admin: 04/08/20 07:33 Dose: 0.25 mg Documented by: Ciprofloxacin (Cipro) 400 mg in 200 mls @ 200 mls/hr IV Q12H [facility]; Protocol Last Infusion: 04/08/20 21:45 Dose: Infused Documented by: Potassium Chloride 40 meq/ (Dextrose) 520 mls @ 130 mls/hr IV UD PRN PRN Reason: K+ = or < 3.5 Acetaminophen (Ofirmev) 650 mg in 65 mls @ 130 mls/hr IV Q6HP PRN; Protocol PRN Reason: Per Pain Protocol/Fever > 101 Magnesium Sulfate (Magnesium Sulfate) 2 gm in 50 mls @ 50 mls/hr IV UD PRN PRN Reason: MG = or < 1.7 Metronidazole (Flagyl) 500 mg in 100 mls @ 100 mls/hr IV Q8H [facility]; Protocol Last Infusion: 04/09/20 06:44 Dose: Infused Documented by: Iron Carb/Multivit/[place]/Folic Acid (Multivitamin W/Minerals) 1 tab PO DAILY [facility] Last Admin: 04/08/20 10:19 Dose: 1 tab Documented by: Lamotrigine (Lamictal) 25 mg PO BID [facility] Last Admin: 04/08/20 20:34 Dose: Not Given Documented by: Melatonin (Melatonin 3mg Tablet) 3 mg PO HSP [facility] Morphine Sulfate (Morphine) 2 mg IV Q2HP PRN; Protocol PRN Reason: Per Pain Protocol Last Admin: 04/09/20 04:13 Dose: 2 mg Documented by: Naloxone HCl (Narcan) 0.1 mg IV Q2MIN PRN PRN Reason: Opiate Reversal Nicotine (Nicoderm) 14 mg TOPICAL DAILY@1000 [facility] Last Admin: 04/08/20 20:52 Dose: 14 mg Documented by: Omeprazole (Prilosec) 40 mg PO ACB [facility] Last Admin: 04/08/20 07:32 Dose: 40 mg Documented by: Ondansetron HCl (Zofran Odt) 4 mg SL Q4-6HP PRN; Protocol PRN Reason: Nausea And Vomiting Ondansetron HCl (Zofran) 4 mg IV Q4-6HP PRN; Protocol PRN Reason: Nausea And Vomiting Budesonide- Formoterol [ Symbicort] 160 Mcg/4 .5mcg Inhaler 1 dose INH BID [facility] Last Admin: 04/08/20 20:34 Dose: 1 dose Documented by: Tiotropium [place] [ Spiriva Respimat] 2. 5 Mcg/Actuation Inhaler 1 dose INH D AILY [facility] Last Admin: 04/08/20 10:18 Dose: 1 dose Documented by: Potassium Chloride (Klor-Con) 40 meq PO DAILYP PRN PRN Reason: K+ < 3.5 Sodium Chloride (Saline Flush) 10 ml IV Q8 [facility] Last Admin: 04/09/20 05:31 Dose: 10 ml Documented by: A/P Narrative A/P Narrative: A: *Sepsis: 2/2 colitis -borderline hypotension on admit. -Leukocytosis resolved *Colitis/abd pain: ischemic vs infectious vs inflammatory bowel -negative procalcitonin. c. difficile negative. 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
[2020-04-09] MEDS: OMEPRAZOLE 20 MG CAPSULE PO SCH (07:29)
[2020-04-09 08:04] LABS: ALT/SGPT 6 U/L (<40); AST/SGOT 13 U/L (<32); Albumin/Globulin Ratio 1.4 (1.0-2.3); Alkaline Phosphatase 41 U/L (39-117); Bilirubin,Direct < 0.2 mg/dL (<0.3); Bilirubin,Total 0.2 mg/dL (0.1-1.0); Blood Urea Nitrogen 7 mg/dL (8-23); Calcium 8.5 mg/dL (8.6-10.4); Carbon Dioxide 24 mmol/L (22-30); Chloride 109 mmol/L (96-108); Globulin 2.1 gm/dL (2.2-3.7); Glomerular Filtration Rate 66; Glucose 90 mg/dL (70-105); Lactate Dehydrogenase 155 U/L (135-225); Phosphorous 2.9 mg/dL (2.5-4.5); Triglycerides 52 mg/dL (<150); Uric Acid 3.5 mg/dL (2.5-8.0)
--- NOTE | 2020-04-09 08:47 | XRay Report ---
HISTORY: Follow-up interval change of atelectasis or scarring lung bases FINDINGS: There are small alveolar infiltrates with superimposed linear bands of discoid atelectasis in both lower lobes, left greater than right. The alveolar opacities have enlarged since the recent study done on 04/06/20. Upper lung santillan are clear. Heart size is within upper limits of normal. There has been prior coronary bypass surgery. No congestive heart failure or pleural effusion are present. IMPRESSION: small bibasilar infiltrates which may be pneumonia, atelectasis or combination of the two. Interpreted and Authenticated by: Fernando Latham 04/09/20
[2020-04-09] MEDS: BUDESONIDE 3 MG CAP.XL.24H PO SCH (09:01)
[2020-04-09] MEDS: TIOTROPIUM BROMIDE INH SCH (09:01)
[2020-04-09] MEDS: CIPROFLOXACIN 400 MG/200 ML BAG IV SCH (09:01)
[2020-04-09] MEDS: BUDESONIDE FORMOTEROL INH SCH ×2 (09:01→20:17)
[2020-04-09] MEDS: CITALOPRAM 20 MG TABLET PO SCH (09:02)
[2020-04-09] MEDS: ASPIRIN 81 MG TAB.CHEW PO SCH (09:02)
[2020-04-09] MEDS: HEPARIN 5,000 UNIT/ML VIAL SQ SCH ×2 (09:02→20:16)
[2020-04-09] MEDS: lamoTRIgine 25 MG TABLET PO SCH ×2 (09:03→20:17)
[2020-04-09] MEDS: MULTIVIT,THER IRON,CA,FA & MIN 1 TABLET PO SCH (09:03)
[2020-04-09] MEDS: NICOTINE 14 MG PATCH TOPICAL SCH (09:05)
[2020-04-09] MEDS ORDERED: POTASSIUM CHLORIDE 20 MEQ PACKET PO ONE (09:45)
[2020-04-09] MEDS: HYDROmorphone 0.5 MG/0.5 ML SYRINGE IV PRN (10:07)
--- NOTE | 2020-04-09 10:45 | Discharge Summary ---
Discharge Provider Provider Patient information: Note initiated : 04/09/20 at 10:44 am Service Date, if different from initiated Date: [] Patient: Brii Leung 70 y/o F admitted on 04/07/20 for suspects constipation. Chief Complaint: [] Date of admission: 04/07/20 04:00 Discharge date: 04/10/20 Primary care physician: Lance Blake MD Consults: 04/07/20 Consult to Physician [CONS] Stat Comment: Consulting Provider: Bill Gonzalez Reason For Exam: Physician to Consult Consult to Physician [CONS] Stat Comment: Consulting Provider: Geovanna Gill Reason For Exam: Physician to Consult Discharge Meds Discharge Medications Home Medications albuterol sulfate 2 puff INH Q4-6HP PRN 05/23/15 [History Confirmed 04/07/20 Last Taken 04/06/20 08:00] aspirin 81 mg tablet,delayed release 81 mg PO QDAY 02/09/19 [History Confirmed 04/07/20 Last Taken 04/06/20 08:00] cetirizine 10 mg tablet 10 mg PO QDAY tab 02/09/19 [History Confirmed 04/07/20 Last Taken Unknown] citalopram 40 mg tablet 40 mg PO QDAY tab 02/09/19 [History Confirmed 04/07/20 Last Taken 04/06/20 08:00] multivitamin 1 tab PO QAM 02/09/19 [History Confirmed 04/07/20 Last Taken 04/06/20 08:00] omeprazole 20 mg capsule,delayed release 40 mg PO QDAY cap 02/09/19 [History Confirmed 04/07/20 Last Taken 04/06/20 08:00] fluticasone propionate 50 mcg/actuation nasal spray,suspension 1 spray INTRANASAL QDAY 05/09/19 [History Confirmed 04/07/20 Last Taken Unknown] ipratropium 0.5 mg-albuterol 3 mg (2.5 mg base)/3 mL nebulization soln 3 ml INHALATION QID PRN #180 ml 08/07/19 [Rx Confirmed 04/07/20 Last Taken 04/06/20 15:00] budesonide-formoterol HFA 160 mcg-4.5 mcg/actuation aerosol inhaler 2 puff INHALATION BID #10.2 g 12/26/19 [Rx Confirmed 04/07/20 Last Taken 04/06/20 08:00] triamterene 37.5 mg-hydrochlorothiazide 25 mg capsule 1 cap PO QAM 12/26/19 [History Confirmed 04/07/20 Last Taken 04/06/20 08:00] tiotropium bromide 2.5 mcg/actuation mist for inhalation 2 puff INHALATION QDAY #4 g 01/22/20 [Rx Confirmed 04/07/20 Last Taken 04/06/20 08:00] ezetimibe 10 mg tablet 10 mg PO QDAY 02/13/20 [History Confirmed 04/07/20 Last Taken Unknown] lisinopril 2.5 mg tablet 2.5 mg PO QDAY 02/13/20 [History Confirmed 04/07/20 Last Taken 04/05/20 20:00] furosemide 20 mg tablet 20 mg PO QDAY 02/19/20 [History Confirmed 04/07/20 Last Taken 04/05/20 08:00] nitroglycerin 0.4 mg sublingual tablet 0.4 mg SUBLINGUAL Q5M PRN 02/19/20 [History Confirmed 04/07/20 Last Taken Unknown] rosuvastatin 5 mg tablet 5 mg PO QDAY 02/19/20 [History Confirmed 04/07/20 Last Taken Unknown] spironolactone 25 mg tablet 25 mg PO QDAY 02/19/20 [History Confirmed 04/07/20 Last Taken 04/06/20 08:00] lamotrigine [Lamictal] 25 mg PO BID 04/07/20 [History Confirmed 04/07/20 Last Taken 04/06/20 08:00] ciprofloxacin HCl 500 mg PO BID #6 tab 04/09/20 [Rx Last Taken Unknown] metronidazole 500 mg PO Q8 #9 tab 04/09/20 [Rx Last Taken Unknown] COURSE Hospital Course Hospital course: History of present illness: Ms. Leung is a 70 year old F with a history of HTN/COPD/HLD/tobacco dependence who presents to the ER with sudden onset worsening abdominal pain that started a few hours prior to presentation. Pain is described as cramping 6 out of 10-10 out of 10 associated with nausea along with diarrhea. She denies associated fever. She has had intermittent bouts of similar symptoms over the last few months but have not sought medical attention. This episode is the most severe. Initial work-up in the ER was consistent with descending colon inflammation likely ischemic versus infectious colitis. C. difficile was negative. White count 20.6, lactic acid 1.2, creatinine 1.4 with a baseline 0.7, procalcitonin 0.07. Patient was started on Cipro Flagyl after discussion with surgery along with oral budesonide. Subsequently hospitalist service was consulted for admission. At the time of my evaluation patient is in moderate discomfort. Endorses a 6 out of 10 pain. She has been on morphine which has not provided adequate relief. She denies bloody stool, bloody urine, recurrent UTI or family history of inflammatory bowel disease. She further denies skin rash/joint pain or recent medication changes or antibiotic exposure. 04/08 Poor sleep but otherwise no new complaints. States a little better overall. Leukocytosis resolved. Left lower quadrant abdominal pain. 04/09 Some diarrhea overnight. Has some abdominal discomfort. Otherwise no new complaints. 04/10 Proving, no new pains or complaints. Stable for discharge. A: *Sepsis: 2/2 colitis -borderline hypotension on admit. -Leukocytosis resolved *Colitis/abd pain: ischemic vs infectious vs inflammatory bowel -negative procalcitonin. c. difficile negative. Lactate ok *KAYLAN: 2/2 sepsis -resolved *COPD(2.5L @home): *CAD/cabg: on ASA *Anxiety: continue citalopram *HTN/HLD: *Tobacco dependence: nicotine patch *GERD: continue PPI *Obese: Discharge diagnosis: Colitis sepsis acute kidney injury Secondary discharge diagnosis: COPD anxiety CAD hypertension tobacco abuse GERD obesity Time Spent with Patient Time attestation: Total time spent providing and/or coordinating discharge services: Time spent: Greater than 30 minutes EXAM Constitutional Vitals: Temp Pulse Resp BP Pulse Ox 97.3 F 67 19 116/66 98 04/09/20 08:01 04/07/20 16:00 04/09/20 08:01 04/09/20 08:01 04/09/20 08:01 Discharge Data Data Completed and Pending Labs on day of discharge: Labs from last 24 hours 04/09/20 04:44 Sodium 140 Potassium 3.5 Chloride 109 H Carbon Dioxide 24 Anion Gap 7.0 L BUN 7 L Creatinine 0.9 GFR Calculation 66 Glucose 90 Uric Acid 3.5 Calcium 8.5 L Phosphorus 2.9 Magnesium 2.1 Total Bilirubin 0.2 Direct Bilirubin < 0.2 GGT 18 AST 13 ALT 6 Alkaline Phosphatase 41 Lactate Dehydrogenase 155 Total Protein 5.1 L Albumin 3.0 L Globulin 2.1 L Albumin/Globulin Ratio 1.4 Triglycerides 52 Preliminary micro results at discharge 04/06/20 21:27 Blood Culture - Preliminary Blood 04/06/20 21:08 Blood Culture - Preliminary Blood Discharge Plan Patient/Caregiver Discharge Instructions Activity: increase activity as tolerated Diet: Regular Diet Prescriptions: New metronidazole 500 mg Tablet 500 mg PO Q8 Qty: 9 RF: 0 ciprofloxacin HCl 500 mg Tablet 500 mg PO BID Qty: 6 RF: 0 Continued furosemide 20 mg tablet 20 mg PO QDAY RF: 0 spironolactone 25 mg tablet 25 mg PO QDAY RF: 0 rosuvastatin 5 mg tablet 5 mg PO QDAY RF: 0 nitroglycerin 0.4 mg tablet, sublingual 0.4 mg SUBLINGUAL Q5M PRN (Reason: Chest Pain) RF: 0 Spiriva Respimat 2.5 mcg/actuation mist 2 puff INHALATION QDAY Qty: 4 RF: 6 aspirin [Adult Aspirin Regimen] 81 mg tablet,delayed release (DR/EC) 81 mg PO QDAY RF: 0 citalopram 40 mg tablet 40 mg PO QDAY RF: 0 cetirizine [Aller-Catrina] 10 mg tablet 10 mg PO QDAY RF: 0 multivitamin tablet 1 tab PO QAM RF: 0 fluticasone propionate 50 mcg/actuation spray,suspension 1 spray INTRANASAL QDAY RF: 0 ezetimibe [Zetia] 10 mg tablet 10 mg PO QDAY RF: 0 lisinopril 2.5 mg tablet 2.5 mg PO QDAY RF: 0 ipratropium-albuterol 0.5 mg-3 mg(2.5 mg base)/3 mL solution for nebulization 3 ml INHALATION QID PRN (Reason: shortness of breath or wheezing) Qty: 180 RF: 6 triamterene-hydrochlorothiazid [Dyazide] 37.5-25 mg capsule 1 cap PO QAM RF: 0 Symbicort 160-4.5 mcg/actuation HFA aerosol inhaler 2 puff INHALATION BID Qty: 10.2 RF: 11 albuterol sulfate 1 PUFF inhaler 2 puff INH Q4-6HP PRN (Reason: Shortness Of Breath) RF: 0 omeprazole 20 mg capsule,delayed release(DR/EC) 40 mg PO QDAY RF: 0 lamotrigine [Lamictal] 25 mg tablet 25 mg PO BID RF: 0 Discontinued prednisone 20 mg tablet 20 mg PO QDAY Qty: 5 RF: 0 Follow Up Plan Follow up with: Lance Blake MD [Primary Care Provider] - Patient Disposition: Home, Self-Care Prognosis: Fair Rehab Potential: Fair Overall status at discharge: patient is progressing back to baseline QUALITY VTE Deep Vein Thrombosis/Pulmonary Embolism Present on Admission: No
[2020-04-09] MEDS ORDERED: MELATONIN 3 MG TABLET PO SCH (12:21)
[2020-04-09] MEDS ORDERED: POTASSIUM CHLORIDE 20 MEQ PACKET PO PRN (12:21)
[2020-04-09] MEDS ORDERED: ACETAMINOPHEN 650 MG/65 ML BOTTLE IV PRN (12:21)
[2020-04-09] MEDS ORDERED: POTASSIUM CHLORIDE 40 MEQ in DEXTROSE 5% IN WATER 500 ML IV PRN (12:21)
[2020-04-09] MEDS ORDERED: MAGNESIUM SULFATE 2 GM/50 ML BAG IV PRN (12:21)
[2020-04-09] MEDS ORDERED: IOPAMIDOL 100 ML BOTTLE IV ONE (12:21)
[2020-04-09] MEDS ORDERED: ACETAMINOPHEN 325 MG TABLET PO PRN (12:21)
[2020-04-09] MEDS ORDERED: NALOXONE HCL 0.4 MG/ML VIAL IV PRN (12:21)
[2020-04-09] MEDS ORDERED: ONDANSETRON 4 MG ODT TABLET SL PRN (12:21)
[2020-04-09] MEDS ORDERED: ONDANSETRON 4 MG/2 ML VIAL IV PRN (12:21)
[2020-04-09] MEDS ORDERED: BISACODYL 10 MG SUPP.RECT PR PRN (12:21)
[2020-04-09] MEDS ORDERED: HYDROmorphone 0.5 MG/0.5 ML SYRINGE IV PRN (12:21)
[2020-04-09] MEDS ORDERED: morphine 2 MG/ML VIAL IV PRN (12:21)
[2020-04-09] MEDS ORDERED: metroNIDAZOLE 500 MG TABLET PO SCH (14:00)
[2020-04-09] MEDS: metroNIDAZOLE 500 MG TABLET PO SCH ×2 (14:25→22:06)
[2020-04-09] MEDS: CIPROFLOXACIN 500 MG TABLET PO SCH (20:16)
[2020-04-09] MEDS ORDERED: CIPROFLOXACIN 500 MG TABLET PO SCH (21:00)
[2020-04-10] MEDS: metroNIDAZOLE 500 MG TABLET PO SCH ×2 (05:52→14:01)
[2020-04-10] MEDS: 0.9 % SODIUM CHLORIDE 10 ML SYRINGE IV SCH (05:52)
[2020-04-10] MEDS ORDERED: OMEPRAZOLE 20 MG CAPSULE PO SCH (07:30)
[2020-04-10 08:23] LABS: ALT/SGPT 7 U/L (<40); AST/SGOT 15 U/L (<32); Albumin/Globulin Ratio 1.3 (1.0-2.3); Alkaline Phosphatase 43 U/L (39-117); Bilirubin,Direct < 0.2 mg/dL (<0.3); Bilirubin,Total 0.2 mg/dL (0.1-1.0); Blood Urea Nitrogen 5 mg/dL (8-23); Calcium 8.6 mg/dL (8.6-10.4); Carbon Dioxide 24 mmol/L (22-30); Chloride 108 mmol/L (96-108); Globulin 2.3 gm/dL (2.2-3.7); Glomerular Filtration Rate 66; Glucose 82 mg/dL (70-105); Lactate Dehydrogenase 178 U/L (135-225); Phosphorous 3.6 mg/dL (2.5-4.5); Triglycerides 52 mg/dL (<150); Uric Acid 3.6 mg/dL (2.5-8.0)
[2020-04-10] MEDS ORDERED: CITALOPRAM 20 MG TABLET PO SCH (09:00)
[2020-04-10] MEDS ORDERED: ASPIRIN 81 MG TAB.CHEW PO SCH (09:00)
[2020-04-10] MEDS ORDERED: MULTIVIT,THER IRON,CA,FA & MIN 1 TABLET PO SCH (09:00)
[2020-04-10] MEDS ORDERED: BUDESONIDE 3 MG CAP.XL.24H PO SCH (09:00)
[2020-04-10] MEDS: lamoTRIgine 25 MG TABLET PO SCH (09:16)
[2020-04-10] MEDS: BUDESONIDE FORMOTEROL INH SCH ×2 (09:17→10:30)
[2020-04-10] MEDS: TIOTROPIUM BROMIDE INH SCH ×2 (09:18→10:30)
[2020-04-10] MEDS ORDERED: NICOTINE 14 MG PATCH TOPICAL SCH (10:00)
[2020-04-10] MEDS: HEPARIN 5,000 UNIT/ML VIAL SQ SCH (10:27)
[2020-04-10] MEDS: CIPROFLOXACIN 500 MG TABLET PO SCH (10:27)
[2020-04-10] MEDS: IPRATROPIUM/ALBUTEROL 3 ML AMPUL.NEB NEB PRN ×2 (10:45→15:00)
[2020-04-10] MEDS ORDERED: FUROSEMIDE 40 MG/4 ML VIAL IV ONE (15:16)
[2020-04-10] MEDS ORDERED: ALBUMIN HUMAN 12.5 GM/50 ML BAG IV ONE (15:16)
[2020-04-10] MEDS ORDERED: FUROSEMIDE 20 MG TABLET PO ONE (16:08)
== END 2020-04-10 16:55 | disposition home or self-care (01) | DRG 872 ==
LOC: ED 19:24 → ICU 04-07 04:00
PROVIDERS: ADMIT Internal Medicine; ATTEND Internal Medicine